=== PATIENT | male | born 1955 | race Caucasian/White ===

== ENCOUNTER 2019-07-16 21:24 | Emergency (ER) | payer OTHER ==
--- NOTE | 2019-07-16 21:45 | ER ---
Nurse's Notes [facility] Name: Nain Addison Age: 63 yrs Sex: Male : 1955 Arrival Date: 07/16/2019 Time: 21:26 Bed 26 Private MD: Diagnosis: Arrested dental caries Presentation: 07/16 21:36 Presenting complaint: Patient states: he lost a crown on Tuesday and now he thinks it bb may be infected and he is concerned the infection may travel to his hip replacement. Transition of care: patient was not received from another setting of care. Onset of symptoms was July 16, 2019. Risk Assessment: Do you want to hurt yourself or someone else? Patient reports no desire to harm self or others. Initial Sepsis Screen: Does the patient meet any 2 criteria? No. Patient's initial sepsis screen is negative. Does the patient have a suspected source of infection? No. Patient's initial sepsis screen is negative. Care prior to arrival: None. 21:36 Method Of Arrival: Ambulatory bb 21:36 Acuity: MARIA A 4 bb Historical: - Allergies: 21:41 No Known Allergies; bb - Home Meds: 21:41 aspirin 81 mg Oral chew 1 tab once daily [Active]; ezetimibe 10 mg Oral 1 tab once bb daily [Active]; metoprolol tartrate 50 mg oral tab 1 tab 2 times per day [Active]; rosuvastatin 20 mg Oral tab 1 tab once daily [Active]; valsartan 160 mg Oral tab 1 tab 2 times per day [Active]; omeprazole 20 mg Oral cpDR 1 cap once daily [Active]; amlodipine 10 mg tab 1 tab once daily [Active]; hydrochlorothiazide 25 mg Oral tab 1 tab once daily [Active]; - PMHx: 21:41 GERD; High Cholesterol; Hypertension; Myocardial infarction; bb - PSHx: 21:41 Tonsillectomy; Knee surgery; hip replacement; ankle surgery; bb - Immunization history:: Adult Immunizations up to date. - Social history:: Smoking status: Patient/guardian denies using tobacco, Patient/guardian denies using alcohol, street drugs, The patient lives with family. - Ebola Screening: : No symptoms or risks identified at this time. - Family history:: not pertinent. Screenin:52 Abuse screen: Denies threats or abuse. Nutritional screening: No deficits noted. fu Tuberculosis screening: No symptoms or risk factors identified. Fall Risk None identified. Assessment: 21:48 General: Appears in no apparent distress. Behavior is calm, cooperative, appropriate fu for age, Denies fever, feeling ill, fatigue, chills. Pain: Complains of pain in right hip Pain does not radiate. Pain currently is 6 out of 10 on a pain scale. Pain began 2-3 days ago. Neuro: Level of Consciousness is awake, alert, obeys commands, Oriented to person, place, time, situation, Litigation Counsel are equal bilaterally Moves all extremities. Cardiovascular: Denies chest pain. Respiratory: Airway is patent. GI: No signs and/or symptoms were reported involving the gastrointestinal system. EENT: Reports. EENT: Reports crown fell off last Tuesday, reports pain noticed pus on left lower side of mouth.. Vital Signs: 21:41 Weight 104.33 kg (R); Height 6 ft. 1 in. (185.42 cm) (R); Pain 6/10; bb 21:41 BP 178 / 78; Pulse 66; Resp 18; Temp 98.1; Pulse Ox 93% ; fu 21:41 Pain 6/10; fu 22:01 BP 146 / 85; fu 21:41 Body Mass Index 30.34 (104.33 kg, 185.42 cm) bb ED Course: 21:26 Patient arrived in ED. cl3 21:32 Darnell Alonzo, WILFRED is Primary Nurse. fu 21:34 Yari Barajas MD is Attending Physician. ma2 21:37 Triage completed. bb 21:41 Arm band placed on Patient placed in an exam room, on a stretcher, on pulse oximetry. bb 21:52 Patient has correct armband on for positive identification. Bed in low position. Call fu light in reach. Pulse ox on. NIBP on. 21:53 No provider procedures requiring assistance completed. fu 22:05 Patient did not have IV access during this emergency room visit. fu Administered Medications: 21:48 Drug: Augmentin 875 mg Route: PO; fu 22:01 Follow up: Response: No adverse reaction fu Outcome: 21:44 Discharge ordered by . ma2 22:05 Discharged to home ambulatory. fu 22:05 Condition: stable 22:05 Discharge instructions given to patient, Instructed on discharge instructions, Demonstrated understanding of instructions, Prescriptions given X 1. 22:08 Patient left the ED. fu Signatures: Lina Howard, RN Darnell Yusuf RN Yari Bowden MD MD ma2 Niurka Suarez cl3
--- NOTE | 2019-07-16 21:45 | EDPHYS ---
Physician Documentation [facility] Name: Nain Addison Age: 63 yrs Sex: Male : 1955 Arrival Date: 07/16/2019 Time: 21:26 Bed 26 Private MD: ED Physician Yari Barajas HPI: 07/16 21:42 This 63 yrs old Male presents to ER via Ambulatory with complaints of ma2 Infected Tooth. 21:42 The patient presents with broken tooth/teeth, redness. Onset: The symptoms/episode ma2 began/occurred gradually, 3 day(s) ago. Associated signs and symptoms: Pertinent negatives: dysphagia, nausea, swelling. Severity of symptoms: At their worst the symptoms were moderate, in the emergency department the symptoms are unchanged. The patient has not experienced similar symptoms in the past. Historical: - Allergies: 21:41 No Known Allergies; bb - Home Meds: 21:41 aspirin 81 mg Oral chew 1 tab once daily [Active]; ezetimibe 10 mg Oral 1 tab once bb daily [Active]; metoprolol tartrate 50 mg oral tab 1 tab 2 times per day [Active]; rosuvastatin 20 mg Oral tab 1 tab once daily [Active]; valsartan 160 mg Oral tab 1 tab 2 times per day [Active]; omeprazole 20 mg Oral cpDR 1 cap once daily [Active]; amlodipine 10 mg tab 1 tab once daily [Active]; hydrochlorothiazide 25 mg Oral tab 1 tab once daily [Active]; - PMHx: 21:41 GERD; High Cholesterol; Hypertension; Myocardial infarction; bb - PSHx: 21:41 Tonsillectomy; Knee surgery; hip replacement; ankle surgery; bb - Immunization history:: Adult Immunizations up to date. - Social history:: Smoking status: Patient/guardian denies using tobacco, Patient/guardian denies using alcohol, street drugs, The patient lives with family. - Ebola Screening: : No symptoms or risks identified at this time. - Family history:: not pertinent. ROS: 21:42 Constitutional: Negative for fever, chills, and weight loss. ma2 21:42 All other systems are negative. Exam: 21:42 Constitutional: This is a well developed, well nourished patient who is awake, alert, ma2 and in no acute distress. Neck: Trachea midline, no thyromegaly or masses palpated, and no cervical lymphadenopathy. Supple, full range of motion without nuchal rigidity, or vertebral point tenderness. No Meningismus. Chest/axilla: Normal chest wall appearance and motion. Nontender with no deformity. No lesions are appreciated. Cardiovascular: Regular rate and rhythm with a normal S1 and S2. No gallops, murmurs, or rubs. Normal PMI, no JVD. No pulse deficits. Respiratory: Lungs have equal breath sounds bilaterally, clear to auscultation and percussion. No rales, rhonchi or wheezes noted. No increased work of breathing, no retractions or nasal flaring. Abdomen/GI: Soft, non-tender, with normal bowel sounds. No distension or tympany. No guarding or rebound. No evidence of tenderness throughout. 21:42 Head/Face: left upper molar teeth infection, gum with no abscessm Normocephalic, atraumatic. Vital Signs: 21:41 Weight 104.33 kg (R); Height 6 ft. 1 in. (185.42 cm) (R); Pain 6/10; bb 21:41 BP 178 / 78; Pulse 66; Resp 18; Temp 98.1; Pulse Ox 93% ; fu 21:41 Pain 6/10; fu 22:01 BP 146 / 85; fu 21:41 Body Mass Index 30.34 (104.33 kg, 185.42 cm) bb MDM: 21:34 Patient medically screened. ma2 21:42 Differential diagnosis: dental caries. Data reviewed: vital signs, nurses notes. ma2 Counseling: I had a detailed discussion with the patient and/or guardian regarding: the historical points, exam findings, and any diagnostic results supporting the discharge/admit diagnosis, the presence of at least one elevated blood pressure reading (>120/80) during this emergency department visit, the need for outpatient follow up. Response to treatment: the patient's symptoms have markedly improved after treatment. Administered Medications: 21:48 Drug: Augmentin 875 mg Route: PO; fu 22:01 Follow up: Response: No adverse reaction fu Disposition: 07/16/19 21:44 Discharged to Home. Impression: Arrested dental caries. - Condition is Stable. - Discharge Instructions: Dental Caries, Adult. - Prescriptions for Augmentin 875- 125 mg Oral Tablet - take 1 tablet by ORAL route every 12 hours for 10 days; 20 tablet. - Medication Reconciliation Form, Thank You Letter, Antibiotic Education, Prescription Opioid Use form. - Follow up: Private Physician; When: Tomorrow; Reason: Continuance of care. Signatures: Lina Howard RN Darnell Yusuf RN RN fu Alzahri, Mohammad, MD MD ma2 Corrections: (The following items were deleted from the chart) 22:08 21:44 07/16/2019 21:44 Discharged to Home. Impression: Arrested dental caries. fu Condition is Stable. Forms are Medication Reconciliation Form, Thank You Letter, Antibiotic Education, Prescription Opioid Use. Follow up: Private Physician; When: Tomorrow; Reason: Continuance of care. ma2
[2019-07-16] MEDS ORDERED: AMOX/K CLAV 875 MG TAB ONE (21:49)
[2019-07-16 23:08] VITALS: TEMP 98.1; O2SAT 93
[2019-07-16 23:18] VITALS: BP 146/85
== END 2019-07-16 22:08 | disposition home or self-care (01) ==
LOC: ER 21:24
DX: K02.3 Arrested dental caries (principal); I10 Essential (primary) hypertension; E78.00 Pure hypercholesterolemia, unspecified; K21.9 Gastro-esophageal reflux disease without esophagitis; I25.2 Old myocardial infarction
CPT/HCPCS: 99283

== ENCOUNTER 2019-08-18 12:47 | Emergency (ER) | payer OTHER ==
[2019-08-18] MEDS ORDERED: MORPHINE 2 MG/ML SYR ONE (13:57)
[2019-08-18] MEDS ORDERED: ONDANSETRON 4 MG/2 ML VIAL ONE (13:57)
[2019-08-18 13:58] LABS: Absolute Lymphocytes (CBC) 2.9 K/uL (0.7-4.9); Basophils % 0.6 % (0-1.3); Hematocrit 46.4 % (39.6-49.0); Lymphocytes % 30.7 % (15.3-44.8); MPV 7.9 fL (7.6-11.3); RBC Red Blood Cell Count 5.05 M/uL (4.33-5.43)
[2019-08-18 14:14] LABS: ALT/SGPT 53 U/L (12-78); AST/SGOT 17 U/L (15-37); Albumin 3.9 g/dL (3.4-5.0); Alkaline Phosphatase 77 U/L (45-117); BUN Blood Urea Nitrogen 15 mg/dL (7-18); Bicarbonate 26 mmol/L (21-32); Bilirubin Total 0.5 mg/dL (0.2-1.0); Glucose Level 126 mg/dL (74-106); Potassium 4.3 mmol/L (3.5-5.1); Sodium Level 147 mmol/L (136-145)
--- NOTE | 2019-08-18 14:41 | ER ---
Nurse's Notes [facility] Name: Nain Addison Age: 64 yrs Sex: Male : 1955 Arrival Date: 08/18/2019 Time: 12:49 Bed 8 Private MD: Skyler Tsai Diagnosis: Pain in right hip Presentation: 08/18 12:58 Presenting complaint: Patient states: Had wisdom teeth removed, was seen for dry socket ss and was given Clindamycin yesterday just in case it may be infected. Pt is concerned because for the past 3-4 days he has been having R hip (hx of total hip replacement) and low back pain and wants to make sure the infection has not made it to his blood stream. Denies fever. Transition of care: patient was not received from another setting of care. Onset of symptoms was August 14, 2019. Risk Assessment: Do you want to hurt yourself or someone else? Patient reports no desire to harm self or others. Initial Sepsis Screen: Does the patient have a suspected source of infection? No. Patient's initial sepsis screen is negative. Initial Sepsis Screen: Does the patient meet any 2 criteria? No. Patient's initial sepsis screen is negative. Care prior to arrival: None. 12:58 Method Of Arrival: Ambulatory ss 12:58 Acuity: MARIA A 4 ss Historical: - Allergies: 13:02 No Known Allergies; ss - Home Meds: 14:06 amlodipine 10 mg tab 1 tab once daily [Active]; aspirin 81 mg Oral chew 1 tab once jl7 daily [Active]; ezetimibe 10 mg Oral 1 tab once daily [Active]; hydrochlorothiazide 25 mg Oral tab 1 tab once daily [Active]; metoprolol tartrate 50 mg Oral tab 1 tab 2 times per day [Active]; omeprazole 20 mg Oral cpDR 1 cap once daily [Active]; rosuvastatin 20 mg Oral tab 1 tab once daily [Active]; valsartan 160 mg Oral tab 1 tab 2 times per day [Active]; - PMHx: 13:02 GERD; Myocardial infarction; Hypertension; High Cholesterol; ss - PSHx: 13:02 Tonsillectomy; ankle surgery; hip replacement; Knee surgery; CABG; ss - Immunization history:: Adult Immunizations up to date. - Coronavirus screen:: The patient has NOT traveled to [place] in the past 14 days. Proceed with normal triage process as indicated. - Social history:: Smoking status: Patient denies any tobacco usage or history of. - Family history:: not pertinent. - Ebola Screening: : Patient denies exposure to infectious person Patient denies travel to an Ebola-affected area in the 21 days before illness onset. Screenin:04 Abuse screen: Denies threats or abuse. Denies injuries from another. Nutritional jl7 screening: No deficits noted. Tuberculosis screening: No symptoms or risk factors identified. Fall Risk IV access (20 points). Total Huffman Fall Scale indicates No Risk (0-24 pts). Assessment: 13:30 General: Appears in no apparent distress. uncomfortable, Behavior is calm, cooperative, jl7 appropriate for age. Pain: Complains of pain in right jaw and right hip Pain currently is 5 out of 10 on a pain scale. Neuro: Level of Consciousness is awake, alert, obeys commands, Oriented to person, place, time, situation. Cardiovascular: Patient's skin is warm and dry. Respiratory: Airway is patent Respiratory effort is even, unlabored, Respiratory pattern is regular, symmetrical. Derm: Skin is pink, warm \T\ dry. 14:45 Reassessment: Patient appears in no apparent distress at this time. Patient and/or em family updated on plan of care and expected duration. Pain level reassessed. Patient is alert, oriented x 3, equal unlabored respirations, skin warm/dry/pink. Vital Signs: 13:02 BP 132 / 73; Pulse 67; Resp 16; Temp 98.0; Pulse Ox 97% on R/A; Weight 104.33 kg; ss Height 6 ft. 1 in. (185.42 cm); Pain 4/10; 13:02 Body Mass Index 30.34 (104.33 kg, 185.42 cm) ED Course: 12:49 Patient arrived in ED. mr 12:49 Skyler Tsai MD is Private Physician. mr 13:01 Triage completed. 13:02 Arm band placed on right wrist. 13:29 Erick Blackman MD is Attending Physician. [facility] 13:30 Initial lab(s) drawn, by mo, sent to lab. Inserted saline lock: 20 gauge in right hand, jl7 using aseptic technique. Blood collected. 13:31 Lucio, Jahala, RN is Primary Nurse. jl7 14:04 Patient has correct armband on for positive identification. Placed in gown. Bed in low jl7 position. Call light in reach. Side rails up X 1. 14:39 Skyler Tsai MD is Referral Physician. [facility] 14:54 No provider procedures requiring assistance completed. IV discontinued, intact, em bleeding controlled, No redness/swelling at site. Pressure dressing applied. Administered Medications: 13:56 Drug: Zofran 4 mg Route: IVP; Site: right hand; jl7 14:55 Follow up: Response: No adverse reaction em 13:58 Drug: morphine 2 mg Route: IVP; Site: right hand; jl7 14:55 Follow up: Response: No adverse reaction; Marked relief of symptoms; Pain is decreased em Outcome: 14:39 Discharge ordered by . [facility] 14:54 Discharged to home ambulatory, with family. em 14:54 Condition: good 14:54 Discharge instructions given to patient, family, Instructed on discharge instructions, follow up and referral plans. medication usage, Demonstrated understanding of instructions, follow-up care, medications, Prescriptions given X 1. 14:55 Patient left the ED. em Signatures: Erick Blackman MD MD cha Rivera, Mary Kota Wesley, RN RN Corrie Topete RN RN ss Leal, Jahala, WILFRED RN 7
--- NOTE | 2019-08-18 14:41 | EDPHYS ---
Physician Documentation [facility] Name: Nain Addison Age: 64 yrs Sex: Male : 1955 Arrival Date: 08/18/2019 Time: 12:49 Bed 8 Private MD: Skyler Tsai ED Physician Erick Blackman HPI: 08/18 13:36 This 64 yrs old Male presents to ER via Ambulatory with complaints of Hip sarah Pain, Mouth Swelling. 13:36 The patient or guardian reports decreased range of motion. that occurred. The sarah complaints affect the right hip. Onset: The symptoms/episode began/occurred 2 day(s) ago. Modifying factors: The symptoms are alleviated by nothing. Associated signs and symptoms:. Severity of symptoms: At their worst the symptoms were mild, in the emergency department the symptoms are unchanged. The patient has not experienced similar symptoms in the past. Historical: - Allergies: 13:02 No Known Allergies; ss - Home Meds: 14:06 amlodipine 10 mg tab 1 tab once daily [Active]; aspirin 81 mg Oral chew 1 tab once jl7 daily [Active]; ezetimibe 10 mg Oral 1 tab once daily [Active]; hydrochlorothiazide 25 mg Oral tab 1 tab once daily [Active]; metoprolol tartrate 50 mg Oral tab 1 tab 2 times per day [Active]; omeprazole 20 mg Oral cpDR 1 cap once daily [Active]; rosuvastatin 20 mg Oral tab 1 tab once daily [Active]; valsartan 160 mg Oral tab 1 tab 2 times per day [Active]; - PMHx: 13:02 GERD; Myocardial infarction; Hypertension; High Cholesterol; ss - PSHx: 13:02 Tonsillectomy; ankle surgery; hip replacement; Knee surgery; CABG; ss - Immunization history:: Adult Immunizations up to date. - Coronavirus screen:: The patient has NOT traveled to [place] in the past 14 days. Proceed with normal triage process as indicated. - Social history:: Smoking status: Patient denies any tobacco usage or history of. - Family history:: not pertinent. - Ebola Screening: : Patient denies exposure to infectious person Patient denies travel to an Ebola-affected area in the 21 days before illness onset. ROS: 13:36 Constitutional: Negative for fever, chills, and weight loss, Eyes: Negative for injury, sarah pain, redness, and discharge, ENT: Negative for injury, pain, and discharge, Neck: Negative for injury, pain, and swelling, Cardiovascular: Negative for chest pain, palpitations, and edema, Respiratory: Negative for shortness of breath, cough, wheezing, and pleuritic chest pain, Abdomen/GI: Negative for abdominal pain, nausea, vomiting, diarrhea, and constipation, Back: Negative for injury and pain, : Negative for injury, bleeding, discharge, and swelling, Skin: Negative for injury, rash, and discoloration, Neuro: Negative for headache, weakness, numbness, tingling, and seizure, Psych: Negative for depression, anxiety, suicide ideation, homicidal ideation, and hallucinations, Allergy/Immunology: Negative for hives, rash, and allergies, Endocrine: Negative for neck swelling, polydipsia, polyuria, polyphagia, and marked weight changes, Hematologic/Lymphatic: Negative for swollen nodes, abnormal bleeding, and unusual bruising. 13:36 MS/extremity: Positive for pain, of the right hip. Exam: 13:36 Constitutional: This is a well developed, well nourished patient who is awake, alert, sarah and in no acute distress. Eyes: Pupils equal round and reactive to light, extra-ocular motions intact. Lids and lashes normal. Conjunctiva and sclera are non-icteric and not injected. Cornea within normal limits. Periorbital areas with no swelling, redness, or edema. ENT: Nares patent. No nasal discharge, no septal abnormalities noted. Tympanic membranes are normal and external auditory canals are clear. Oropharynx with no redness, swelling, or masses, exudates, or evidence of obstruction, uvula midline. Mucous membranes moist. Neck: Trachea midline, no thyromegaly or masses palpated, and no cervical lymphadenopathy. Supple, full range of motion without nuchal rigidity, or vertebral point tenderness. No Meningismus. Chest/axilla: Normal chest wall appearance and motion. Nontender with no deformity. No lesions are appreciated. Cardiovascular: Regular rate and rhythm with a normal S1 and S2. No gallops, murmurs, or rubs. Normal PMI, no JVD. No pulse deficits. Respiratory: Lungs have equal breath sounds bilaterally, clear to auscultation and percussion. No rales, rhonchi or wheezes noted. No increased work of breathing, no retractions or nasal flaring. Abdomen/GI: Soft, non-tender, with normal bowel sounds. No distension or tympany. No guarding or rebound. No evidence of tenderness throughout. Back: No spinal tenderness. No costovertebral tenderness. Full range of motion. Male : Normal genitalia with no discharge or lesions. Skin: Warm, dry with normal turgor. Normal color with no rashes, no lesions, and no evidence of cellulitis. Neuro: Awake and alert, GCS 15, oriented to person, place, time, and situation. Cranial nerves II-XII grossly intact. Motor strength 5/5 in all extremities. Sensory grossly intact. Cerebellar exam normal. Normal gait. Psych: Awake, alert, with orientation to person, place and time. Behavior, mood, and affect are within normal limits. 13:36 Head/face: Noted is tenderness, that is mild, of the right cheek and right jaw. 13:36 Musculoskeletal/extremity: Extremities: pain, ROM: intact in all extremities, full active range of motion, full passive range of motion, Circulation is intact in all extremities. Compartment Syndrome exam of affected extremity: is normal. Joints: pain at rest, painful range of motion, Weight bearing: able to fully bear weight, DVT Exam: No signs of deep vein thrombosis. no pain, no swelling, no tenderness, negative Homans' sign noted on exam, no appreciated bluish discoloration, no erythema, no increased warmth. Vital Signs: 13:02 BP 132 / 73; Pulse 67; Resp 16; Temp 98.0; Pulse Ox 97% on R/A; Weight 104.33 kg; ss Height 6 ft. 1 in. (185.42 cm); Pain 4/10; 13:02 Body Mass Index 30.34 (104.33 kg, 185.42 cm) ss MDM: 13:29 Patient medically screened. [facility] 13:43 Data reviewed: vital signs, nurses notes, lab test result(s). [facility] 08/18 13:36 Order name: CBC with Diff [facility] 08/18 13:36 Order name: Comprehensive Metabolic Panel [facility] 08/18 13:36 Order name: Sed Rate [facility] 08/18 14:13 Order name: CBC with Automated Diff; Complete Time: 14:39 EDVT 08/18 14:15 Order name: Comprehensive Metabolic Panel; Complete Time: 14:39 EDMS 08/18 14:22 Order name: Sedimentation Rate, Briannaren; Complete Time: 14:39 [facility] 08/18 13:44 Order name: Hip Right 2 View XRAY [facility] 08/18 13:53 Order name: IV Saline Lock - Large Bore; Complete Time: 14:03 [facility] Administered Medications: 13:56 Drug: Zofran 4 mg Route: IVP; Site: right hand; jl7 14:55 Follow up: Response: No adverse reaction em 13:58 Drug: morphine 2 mg Route: IVP; Site: right hand; jl7 14:55 Follow up: Response: No adverse reaction; Marked relief of symptoms; Pain is decreased em Disposition: 08/18/19 14:39 Discharged to Home. Impression: Pain in right hip. - Condition is Stable. - Discharge Instructions: Joint Pain, Musculoskeletal Pain, Hip Pain, Joint Pain, [id number]. - Prescriptions for Tylenol- Codeine #3 300-30 mg Oral Tablet - take 2 tablets by ORAL route every 6 hours As needed; 20 tablet. - Medication Reconciliation Form, Thank You Letter, Antibiotic Education, Prescription Opioid Use form. - Follow up: Skyler Tsai; When: 2 - 3 days; Reason: Recheck today's complaints, Continuance of care, Re-evaluation by your physician. - Problem is new. - Symptoms have improved. Signatures: Dispatcher [employer] Erick De Santiago MD MD cha Munoz, Edgar RN Corrie Rondey RN RN ss Leal, Jahala, RN RN jl7 Corrections: (The following items were deleted from the chart) 14:55 14:39 08/18/2019 14:39 Discharged to Home. Impression: Pain in right hip. Condition is em Stable. Discharge Instructions: Joint Pain, Musculoskeletal Pain, Hip Pain, Joint Pain, [id number]. Forms are Medication Reconciliation Form, Thank You Letter, Antibiotic Education, Prescription Opioid Use. Follow up: Skyler Tsai; When: 2 - 3 days; Reason: Recheck today's complaints, Continuance of care, Re-evaluation by your physician. Problem is new. Symptoms have improved. sarah
[2019-08-18 15:22] VITALS: BP 132/73; TEMP 98; O2SAT 97
--- NOTE | 2019-08-18 15:32 | RAD REPORT ---
EXAM DESCRIPTION: RAD - Hip Right 2 View - 08/18/2019 2:35 pm CLINICAL HISTORY: PAIN COMPARISON: No comparisons FINDINGS: AP and frog-leg views of the right hip were obtained. Right total hip prosthesis in place. No fracture or acute bone process seen. There is no evidence for loosening of the right femoral component. No loosening changes of the acetabular cup seen. No focal or destructive process seen that would suspect bone infection. No periarticular mass or hematoma iden tified. No abnormal air densities in the soft tissues. IMPRESSION: Right total hip prosthesis in place with no radiographic evidence for loosening or infec tion of the bone.
== END 2019-08-18 14:55 | disposition home or self-care (01) ==
LOC: ER 12:47
DX: M25.551 Pain in right hip (principal); K21.9 Gastro-esophageal reflux disease without esophagitis; I10 Essential (primary) hypertension; E78.00 Pure hypercholesterolemia, unspecified; I25.2 Old myocardial infarction; Z95.1 Presence of aortocoronary bypass graft
CPT/HCPCS: 85025; 36415; 85652; 80053; 73502; 96375; 96374; 99284; J2270; J2405

== ENCOUNTER 2023-02-17 14:30 | Emergency (ER) | payer OTHER ==
--- OUTSIDE RECORDS SUMMARY | 2023-02-17 14:34 | XMS REPORT | Clinical Summary ---
:1955 Author Organization [facility] MD [facility] Center Address [address] [place] [address] Care Team Providers Name Role Phone Skyler Tsai MD Unavailable Jocelin Cook MD Primary Care Provider Allergies No known active allergies Medications Medication Sig Dispensed Refills Start End Date Status Date valsartan (DIOVAN) 160 BID 3 Active mg tablet 7 rosuvastatin (CRESTOR) TAKE 1 12 Active 20 mg tablet TABLET BY 7 MOUTH EVERY DAY ezetimibe (ZETIA) 10 mg TAKE 1 12 Active tablet TABLET BY 7 MOUTH EVERY DAY cyclobenzaprine TAKE 1 12 Acti ve (FLEXERIL) 10 mg tablet TABLET BY 7 ORAL ROUTE EVERY BEDTIME metoprolol tartrate Take 50 mg 0 Active (LOPRESSOR) 50 mg by mouth tablet twice daily. aspirin 81 mg EC tablet Take 81 mg 0 Active by mouth. hydroCHLOROthiazide Take 25 mg 0 Active (HYDRODIURIL) 25 mg by mouth. tablet coenzyme Q10 200 mg Take 1 0 Active capsule tablet by mouth. cholecalciferol, Take 1,000 0 Ac tive vitamin D3, 1,000 units Units by tablet mouth daily. amLODIPine (NORVASC) 10 TAKE 1 3 Active mg tablet TABLET BY 8 ORAL ROUTE EVERY DAY fluticasone propionate SPRAY 1 0 Active (FLONASE) 50 mcg/spray SPRAY INTO 9 nasal spray EACH NOSTRIL TWICE A DAY pantoprazole (PROTONIX) Take 40 mg 0 Active 40 mg EC tablet by mouth. 9 famotidine (PEPCID) 40 Take 40 mg 0 Active mg tablet by mouth 0 daily. At bed time. diazePAM (Valium) 5 mg Take Two 2 tablet 0 Active tabletIndications: Tablets (10 1 Claustrophobia mg total) 30 Minutes Before MRI. melatonin 3 mg tablet Take 3 mg 0 03/04/20 Discontinued by mouth 22 (Not Appli cable) nightly as needed. 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 Thyroid nodule Follicular neoplasm of thyroid Pituitary microadenoma Hyperprolactinemia Encounters Date Type Specialty Care Team Description 03/05/2022 Orders Only Radiology Sherin Myers MD 03/04/2022 Office Visit Endocrinology Jocelin Cook MD Pituitary m icroadenoma (Primary Dx); Hyperprolactine alfredo; Thyroid nodule; Encounter for s creening for other suspected endocrine disorder 03/04/2022 Ancillary Procedure Radiology Gisele Velasquez, Pitu itary microadenoma CLOCK ASSEMBLER 03/04/2022 Ancillary Procedure Radiology Gisele Velasquez, Thyr oid nodule CLOCK ASSEMBLER 03/04/2022 Hospital Encounter Lab Gisele Velasquez, Encou nter for screening for other suspected endocrine disorder; CLOCK ASSEMBLER Hyperprolactine alfredo; Thyroid nodule 03/04/2022 Travel after 02/17/2022 Surgical History Surgery Date Site/Laterality Comments COLONOSCOPY TOTAL HIP ARTHROPLASTY Right CORONARY ARTERY BYPASS 07/04/2006 - GRAFT 07/03/2007 CARPAL TUNNEL RELEASE TONSILLECTOMY NECK SURGERY for torticollis OTHER SURGICAL HISTORY botox for torticollis OTHER SURGICAL HISTORY facial re pair after industrial accid ent which makes face seem asymmetrical Medical History Medical History Date Comments Coronary arteriosclerosis Hypertension Hyperlipidemia Impaired fasting glucose Osteoarthritis Allergic rhinitis not current though Torticollis Myocardial infarction 01/26/2007 Quadruple bypass Hepatitis 1976 Gastric reflux resolved Presence of other specified device Hip r eplacement, pins - ankles Herpes zoster Thyroid nodule Follicular neoplasm of thyroid Personal history of colon polyp Nephrolithiasis on CT 02/17/2017 Diverticulosis of colon (without mention of on CT 02/17/2017 hemorrhage) Pituitary microadenoma Family History Medical History Relation Name Comments Leukemia Brother Isaías Addison hairy cell leuk emia Bone cancer Father Dilshad Addison, Sr. Colon cancer Father Dilshad Addison, Sr. Diabetes Father Dilshad Addison, Sr. Lung cancer Father Dilshad Addison, Sr. Hypertension Mother Mee Addison Thyroid cancer Neg Hx Thyroid disease Neg Hx Relation Name Status Comments Brother Isaías Addison Father Dilshad Addison, Sr. Mother Mee Addison Social History Tobacco Use Types Packs/Day Years Used Date Smoking Tobacco: Former Cigarettes 08/04 - 2005 Smokeless Tobacco: Never Alcohol Use Standard Drinks/Week Comments Yes 0 (1 standard drink = 0.6 oz pure alcoho l) Occasional Sex Assigned at Date Recorded Male 12/24/2020 12:30 PM CDT Job Start Date Occupation Industry Not on file Not on file Not on file Obstetrics History Last Filed Vital Signs Vital Sign Reading Time Taken Comments Blood Pressure 156/79 03/04/2022 1:53 PM CDT Pulse 74 03/04/2022 1:53 PM CDT Temperature 36.7 C (98.1 F) 03/04/2022 1:53 PM CDT Respiratory Rate 20 03/04/2022 1:53 PM CDT Oxygen Saturation 96% 03/04/2022 1:53 PM CDT Inhaled Oxygen Concentration - - Weight 106.8 kg (235 lb 7.2 oz) 03/04/2022 1:53 PM CDT Height - - Body Mass Index 31.04 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 Plan of Treatment Date Type Specialty Care Team Description 04/21/2023 Appointment Lab Christy Zhu PA [address] [place], [place] [address] (Wo rk) 04/21/2023 Ancillary Procedure Radiology Paul Zhu PA [address] [place], [place] [address] (Wo rk) 04/21/2023 Ancillary Procedure Radiology Paul Zhu PA [address] [place], [place] [address] (Wo rk) 04/21/2023 Follow-Up Endocrinology Jocelin Cook MD [address] [place], [place] [address] (Wo rk) Health Maintenance Due Date Last Done Comments COVID-19 Vaccination (#1) 02/11/1956 Medical Devices Implanted Type Area Wooden Tank Erector Device Identifier Shelf Exp iration Model / Date Serial / L ot Pins In Ankle Procedures Procedure Name Priority Date/Time Associated Comments Diagnosis MRI PITUITARY W WO Routine 03/04/2022 1:35 Pituitary Result s for CONTRAST PM CDT microadenoma this procedure are in the results section. US HEAD NECK SOFT TISSUE Routine 03/04/2022 11:15 Thyroid nodu le Results for AM CDT this procedure are in the results section. CORTISOL Routine 03/04/2022 10:15 Encounter for Results fo r AM CDT screening for other this pro cedure suspected endocrine are in t he disorder results section. ADRENOCORTICOTROPIC Routine 03/04/2022 10:15 Encounter for Res ults for HORMONE AM CDT screening for other this pro cedure suspected endocrine are in t he disorder results section. THYROID STIMULATING Routine 03/04/2022 10:15 Thyroid nod ule Results for HORMONE AM CDT Encounter for this procedure screening for other are in t he suspected endocrine results disorder section. FREE THYROXINE Routine 03/04/2022 10:15 Thyroid nodule Results for AM CDT Encounter for this procedure screening for other are in t he suspected endocrine results disorder section. PROLACTIN Routine 03/04/2022 10:15 Hyperprolactine alfredo Results for AM CDT Encounter for this procedure screening for other are in t he suspected endocrine results disorder section. INSULIN LIKE GROWTH FACTOR Routine 03/04/2022 10:15 Encounter for Results for 1 AM CDT screening for other this pro cedure suspected endocrine are in t he disorder results section. TESTOSTERONE LEVEL Routine 03/04/2022 10:15 Encounter for Resu lts for AM CDT screening for other this pro cedure suspected endocrine are in t he disorder results section. LUTEINIZING HORMONE Routine 03/04/2022 10:15 Encounter for Res ults for AM CDT screening for other this pro cedure suspected endocrine are in t he disorder results section. FOLLICLE STIMULATING Routine 03/04/2022 10:15 Encounter for Re sults for HORMONE LEVEL AM CDT screening for other this pr ocedure suspected endocrine are in t he disorder results section. ELECTROLYTE PANEL Routine 03/04/2022 10:15 Encounter for Resul ts for AM CDT screening for other this pro cedure suspected endocrine are in t he disorder results section. after 02/17/2022 Results MRI Pituitary with and without Contrast (03/04/2022 1:35 PM CDT) Anatomical Region Laterality Modality Head Magnetic Resonance Specimen (Source) Anatomical Collection Method Collection Time Re ceived Time Location / / Volume Laterality 03/05/2022 8:08 AM CDT Impressions 03/05/2022 12:00 PM CDT Stable 8 x 6 mm nonenhancing cystic lesi on of the right sella. I personally reviewed these image(s) an buchanan with the resident's/fellow's interpretations, certify that if a procedure was performed I was physically present, and agree with the final report. Narrative 03/05/2022 12:00 PM CDT FULL RESULT: EXAMINATION: MRI brain pituitary with an d without contrast, on 03/05/2022 CLINICAL HISTORY: 66-year-old male with pituitary microadenoma with hyperprolactinemia. INDICATION: Pituitary microadenoma COMPARISON: MRI brain pituitary 1.. TECHNIQUE: Multiplanar and multisequence MRI of the brain was performed before and after administration of IV contrast. FINDINGS: Sella: There is a stable cystic lesion w ithin the right side of the sella, which is T1 hypointense, T2 hyperintense, and nonenhancing on postcontrast images. The lesion measures 8 x 6 mm, not significantly changed since prior measurement of 8 x 7 mm. The pituitary stalk is minimally displac ed to the left. No compression of the optic chiasm. Parasellar structures: Normal cavernous sinuses and carotid artery flow voids. Parenchyma: No acute hemorrhage, infarct ion, mass, or abnormal enhancement. Ventricles and extra-axial spaces: Appro priate for age. Orbits: Normal. Visualized paranasal sinuses: Clear. Mastoid air cells: Clear. Bones: Normal. Procedure Note Hue Prieto MD - 03/05/2022Forma tting of this note might be different from the original. FULL RESULT: EXAMINATION: MRI brain pituitary with an d without contrast, on 03/05/2022 CLINICAL HISTORY: 66-year-old male with pituitary microadenoma with hyperprolactinemia. INDICATION: Pituitary microadenoma COMPARISON: MRI brain pituitary 1.. TECHNIQUE: Multiplanar and multisequence MRI of the brain was performed before and after administration of IV contrast. FINDINGS: Sella: There is a stable cystic lesion w ithin the right side of the sella, which is T1 hypointense, T2 hyperintense, and nonenhancing on postcontrast images. The lesion measures 8 x 6 mm, not significantly changed since prior measurement of 8 x 7 mm. The pituitary stalk is minimally displac ed to the left. No compression of the optic chiasm. Parasellar structures: Normal cavernous sinuses and carotid artery flow voids. Parenchyma: No acute hemorrhage, infarct ion, mass, or abnormal enhancement. Ventricles and extra-axial spaces: Appro priate for age. Orbits: Normal. Visualized paranasal sinuses: Clear. Mastoid air cells: Clear. Bones: Normal. IMPRESSION: Stable 8 x 6 mm nonenhancing cystic lesi on of the right sella. I personally reviewed these image(s) an buchanan with the resident's/fellow's interpretations, certify that if a procedure was performed I was physically present, and agree with the final report. Gisele Velasquez APRN G MRI ORDERABLES US Head Neck Soft Tissue (03/04/2022 11:15 AM CDT) Anatomical Region Laterality Modality Head, Neck Ultrasound Specimen (Source) Anatomical Collection Method Collection Time Re ceived Time Location / / Volume Laterality 03/04/2022 11:16 AM CDT Impressions 03/04/2022 12:27 PM CDT Stable examination without suspicious fi nding. 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 Indication: Reassessment. Comparison: Ultrasound of the thyroid Ju nd 2020. Technique: Grayscale and Doppler ultraso und imaging of the neck were performed. Findings: Within the RIGHT inferior thyroid is a p redominantly hypoechoic nodule measuring 6 x 6 x 5 mm and previously measuring 5 x 5 x 6 mm. The isthmus and RIGHT thyroid otherwise unremarkable. The nodule in t he LEFT superior thyroid previously biop sied as benign currently measures 10 x 15 x 11 mm and previously measured 9 x 13 x 9 mm. The LEFT thyroid is otherwise unremarkable. There is no cervical lymphadenopathy. Procedure Note Jagjit Smith MD - 03/04/2022Formattin g of this note might be different from the original. 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 Indication: Reassessment. Comparison: Ultrasound of the thyroid Ju nd 2020. Technique: Grayscale and Doppler ultraso und imaging of the neck were performed. Findings: Within the RIGHT inferior thyroid is a p redominantly hypoechoic nodule measuring 6 x 6 x 5 mm and previously measuring 5 x 5 x 6 mm. The isthmus and RIGHT thyroid otherwise unremarkable. The nodule in the LEFT superior thyroid previously biopsied as benign cu rrently measures 10 x 15 x 11 mm and previously measured 9 x 13 x 9 mm. The LEFT thyroid is otherwise unremarkable. There is no cervical lymphadenopathy. IMPRESSION: Stable examination without suspicious fi nding. Gisele Velasquez APRN IMG US ORDERABLES Insulin-Like Growth Factor I (03/04/2022 10:15 AM CDT) athologist Signature Insulin-Like 160 32 - 209 [facility] Growth Factor ng/mL [facility] 1-[employer] IGF Z-score 1.28 -2.0 - 2.0 [facility] Comment: ADDITIONAL INFORMATIO N This test was developed and its performa nce characteristics determined by [facility] in a manner co nsistent with CLIA requirements. This test has not been pritesh ared or approved by the U.S. Food and Drug Administration. Test Performed by: [facility] [address] [place] [address] [phone] Electronics Manufacturer: Uri Bautista M.D. Ph. D.; [facility]# [id number] Specimen Anatomical Collection Method Collection Time Receive d Time (Source) Location / / Volume Laterality Blood 03/04/2022 10:15 03/04/2022 AM CDT 11:28 AM CDT Narrative [facility] - 2 12:30 PM CDT Labs 8:00 AM. Gisele Cecily Velasquez APRN LAB BLOOD ORDERABLES Performing Organization Address City/[facility] Phon e Number [facility] CANCER Unless otherwise noted, [address] all lab tests performed by: Division of Pathology and Laboratory Medicine [address] [place] [address] ACTH (03/04/2022 10:15 AM CDT) athologist Signature ACTH 16 7 - 63 [facility] pg/mL [facility] Comment: Results greater than 1826 pg/mL may not be reliable due to matrix effect with extended dilution as it exceeds the labview programmer's recommended limit. ACTH reference intervals are established for the morni ng hours from 7-10 am. Due to the circad madhav rhythm of ACTH levels in plasma, the sample col lection time must be noted. Caution should be exercised when interpreting such values and done in conjunction with clinical context. Specimen Anatomical Collection Method Collection Time Receive d Time (Source) Location / / Volume Laterality Blood 03/04/2022 10:15 03/04/2022 2:10 AM CDT PM CDT Narrative [facility] - 2 2:32 PM CDT Labs 8:00 AM. This lab cannot be scheduled at the [facility] locations due to collection/proccessing restrictions: [place] - REGLC DIAG LAB CTR [place] - REGSL DIAG LAB CTR [place] - REGWL DIAG LAB CTR [facility] - REGWR DAIG LAB CTR DI [facility] DIWH DIAG LAB CTR [place] - CABI DIAG LAB CTR Gisele Velasquez CLOCK ASSEMBLER LAB BLOOD ORDERABLES Performing Organization Address City/[facility]/ZIP [facility] Phon e Number [facility] Unless otherwise noted, [address] all lab tests performed by: Division of Pathology and Laboratory Medicine [address] [place] [address] Prolactin (03/04/2022 10:15 AM CDT) athologist [facility] Prolactin 13.9 4.0 - 15.2 [facility] ng/mL [facility] Comment: Results greater than 4700.0 ng/ mL may not be reliable due to matrix effect with extended dilution as it exceeds the labview programmer s recommended limit. Caution should be e xercised when interpreting such values and done in conjunction with clinical contex t. Specimen Anatomical Collection Method Collection Time Receive d Time (Source) Location / / Volume Laterality Blood 03/04/2022 10:15 03/04/2022 AM CDT 11:08 AM CDT Narrative [facility] - 11:59 AM CDT Labs 8:00 AM. Gisele Velasquez APRN LAB BLOOD ORDERABLES Performing Organization Address City/[facility] Phon e Number [facility] CANCER Unless otherwise noted, [place] [address] CENTER all lab tests performed by: Division of Pathology and Laboratory Medicine [address] [place] [address] [place] TSH (03/04/2022 10:15 AM CDT) [facility] TSH 2.94 0.27 - 4.20 [facility] mcunit/mL Comment: Note: New Methodology and Reference Ra nge change effective 10/20/2017 at 1400 Testing Performed at [facility], [address] [place] [address], [address], [place] [address] Specimen Anatomical Collection Method Collection Time Receive d Time (Source) Location / / Volume Laterality Blood 03/04/2022 10:15 03/04/2022 AM CDT 10:23 AM CDT Narrative [facility] - 03/04/2022 11:07 AM CDT Labs 8:00 AM. Gisele Velasquez APRN LAB BLOOD ORDERABLES Performing Organization Address City/[facility]/ZIP [facility] Phon e Number [address] [place] [address] [address] T4 Free (03/04/2022 10:15 AM CDT) athologist [facility] T4 Free 1.22 0.93 - 1.70 [facility] ng/dL Comment: Testing Performed at [facility], [address] [facility], [address], [place] [address] Specimen Anatomical Collection Method Collection Time Receive d Time (Source) Location / / Volume Laterality Blood 03/04/2022 10:15 03/04/2022 AM CDT 10:23 AM CDT Narrative [facility] - 03/04/2022 11:07 AM CDT Labs 8:00 AM. Gisele Velasquez APRN LAB BLOOD ORDERABLES Performing Organization Address City/[facility]/ZIP Code Phon e Number [facility] [address] [facility] [place] [address] [address] Testosterone Level (03/04/2022 10:15 AM CDT) athologist Signature Testoster Tot 356 193 - 740 [facility] ng/dL [facility] Comment: Reference Ranges: Male: Age 20 - 49 249 - 836 Age >=50 1 93 - 740 Female: Age 20 - 49 8 - 48 Age >=50 3 - 41 Specimen Anatomical Collection Method Collection Time Receive d Time (Source) Location / / Volume Laterality Blood 03/04/2022 10:15 03/04/2022 AM CDT 11:08 AM CDT Narrative [facility] - 2 11:59 AM CDT Labs 8:00 AM. Gisele Velasquez APRN LAB BLOOD ORDERABLES Performing Organization Address City/State/ZIP Code Phon e Number [facility] CANCER Unless otherwise noted, [place] [address] CENTER all lab tests performed by: Division of Pathology and Laboratory Medicine [address] [place] (ABNORMAL) LH (03/04/2022 10:15 AM CDT) athologist Signature LH 13.4 (H) 1.7 - 8.6 [facility] mIU/mL [facility] Comment: Female Luteinizing Hormone Reference Ran ges: LOW HIGH Follicular 2.4 12.6 Ovulation 14.0 95.6 Luteal 1.0 11.4 Postmenopause 7.7 58.5 Specimen Anatomical Collection Method Collection Time Receive d Time (Source) Location / / Volume Laterality Blood 03/04/2022 10:15 03/04/2022 AM CDT 11:08 AM CDT Narrative [facility] - 2 11:59 AM CDT Labs 8:00 AM. Gisele Velasquez APRN LAB BLOOD ORDERABLES Performing Organization Address City/[facility]/ZIP Code Phon e Number [facility] Unless otherwise noted, [address] all lab tests performed by: Division of Pathology and Laboratory Medicine [facility]5 [facility] (ABNORMAL) FSH Level (03/04/2022 10:15 AM CDT) athologist Signature FSH 17.5 (H) 1.5 - 12.4 [facility] mIU/mL [facility] Comment: Female Follicle Stimulating Hormone Refe rence Ranges: L OW HIGH Follicular 3.5 12.5 Ovulation 4.7 21.5 Luteal 1.7 7.7 Postmenopause 25.8 134.8 Specimen Anatomical Collection Method Collection Time Receive d Time (Source) Location / / Volume Laterality Blood 03/04/2022 10:15 03/04/2022 AM CDT 11:08 AM CDT Narrative [facility] - 2 11:59 AM CDT Labs 8:00 AM. Giseletera Taamyoel CLOCK ASSEMBLER LAB BLOOD ORDERABLES Performing Organization Address City/[facility]/ZIP Code Phon e Number [facility] Unless otherwise noted, [address] all lab tests performed by: Division of Pathology and Laboratory Medicine [address] [place] [address] Cortisol, Total (03/04/2022 10:15 AM CDT) athologist [facility] Cortisol, Total 12.26 4.80 - [facility] 19.50 mcg/dL Comment: Cortisol reference intervals are establi shed for the morning hours from 6-10 am and afternoon hours 4-8 pm. Due to circadian rhythm of cortisol levels in serum and plasma, the sample collection time must be noted. Caution should be exercised when interpreting such values and done in con junction with clinical context. Serum Cortisol Reference Ranges: Morning (6-10am) (4.8 - 19.5) Afternoon (4-8pm) (2.5 - 11.9) Testing Performed at [facility] Blower Installer [facility], [address], [address], [place] [address] Specimen Anatomical Collection Method Collection Time Receive d Time (Source) Location / / Volume Laterality Blood 03/04/2022 10:15 03/04/2022 AM CDT 10:38 AM CDT Narrative [facility] - 03/04/2022 11:14 AM CDT Labs 8:00 AM. Gisele Velasquez APRN LAB BLOOD ORDERABLES Performing Organization Address [facility]/ZIP [facility] Phon e Number [facility] [address] [place] [address] [address] Electrolyte Panel (03/04/2022 10:15 AM CDT) P athologist Signature Sodium Lvl 136 136 - 145 [facility] mEq/L Comment: Testing Performed at [facility], [address], [address], [place] [address] Potassium Lvl 4.4 3.5 - 5.1 mEq/L [facility] Comment: Testing Performed at B [facility], [address], [address], [place] [address] Chloride 98 98 - 107 mEq/L [facility] Comment: Testing Performed at B [facility], [address], [address], [place] [address] CO2 28 22 - 29 mEq/L [facility] Comment: Testing Performed at B [facility], [address], [place] [address] Anion Gap 10 4 - 14 mEq/L [facility] Comment: Testing Performed at [facility] Lab [facility], [address], [place] [address] Specimen Anatomical Collection Method Collection Time Receive d Time (Source) Location / / Volume Laterality Blood 03/04/2022 10:15 03/04/2022 AM CDT 10:23 AM CDT Narrative [facility] - 03/04/2022 10:46 AM CDT Labs 8:00 AM. Gisele Velasquez APRN LAB BLOOD ORDERABLES Performing Organization Address [facility]/ZIP [facility] Phon e Number [facility] [address] [place] [address] [address] after 02/17/2022 Insurance Payer Benefit Plan / Subscriber ID Effective Dates Phone Addre ss Type Group [employer] MANAGED C[employer]NA HMO POS [id number] 2013-Present [id number] HMO CARE OPEN ACCESS [place] [id number] y (Home) [place] [phone] Nain Addison Personal/Famil Self [address] [place] (Home) [place] [phone] Nain Addison Personal/Famil Self [address] [place] [place] (Home) [place] [address] Care Teams [employer] Inspector Relationship Specialty Start Date End Date Skyler Tsai MD PCP - External Referring Internal Medicine 04/07/[address] [place] [address] [place] [phone] Jocelin Cook MD PCP - General Endocrinology 05/04/[address] [place] [address] [id number]
--- OUTSIDE RECORDS SUMMARY | 2023-02-17 14:35 | XMS REPORT | Continuity of Care Document ---
:1955 Author Organization [facility] t Address [address] [place] [address] [place] [address] Care Team Providers Name Role Phone CAMMY BROWN Primary Care Physician Unavailable Rox Potter MD Attending Clinician Nannette Torres MA Attending Clinician Unavailable Nina Kendall MA Attending Clinician Unavailable Sherin Myers MD Attending Clinician Gisele Velasquez APRN Attending Clinician GISELE VELASQUEZ Attending Clinician Unavailable Jocelin Cook MD Attending Clinician JOCELIN COOK Attending Clinician Unavailable RADIOLOGY Attending Clinician Unavailable Radiology Attending Clinician Unavailable Doctor Unassigned, [place] Attending Clinician Unavailable Lapin_S Attending Clinician Unavailable REMA BOSCH Attending Clinician Unavailable KYLAH LESTER Admitting Clinician Unavailable Lapin_S Admitting Clinician Unavailable Payers Payer Name Policy Type Policy Number Effective Date Expiration Date Geovanna skinner [employer] [id number] 2016 00:00:00 [email or web address] [id number] 2013 00:00:00 Problems Condition Condition Condition Status Onset Resolution Last Treating Co mments Source Name Details Category Date Date Treatment Clinician Date Encounter Encounter Disease Active 2018-07 Uni vers for for 07-16 [place] 00 suspected suspected Roney rso endocrine endocrine n disorder disorder [facility] [place] Disease Active 2016-07 Unive rs 07-17 ity of 00:00: [place] 00 MD [facility] Hypertensi Hypertensi Disease Active 2016-07 U nivers on on 07-17 ity of 00:00: [place] 00 MD [facility] Neck Neck Disease Active Methodi infection infection 02-19 st 00:00: Hospita 00 l 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 02-07 st s without s without 00:00: Hosp hi myelopathy myelopathy 00 l Transient Transient Disease Active Met hodi cerebral cerebral 02-07 ischemia ischemia 00:00: Hospit a 00 l 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 Uni vers torticolli torticolli it y of s s 00:00: [place] 00 MD [facility] Thyroid Thyroid Disease Active Univers nodule nodule ity of [place] MD Mari haynes [facility] 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 ity of of [place] of thyroid [place] [facility] [place] Pituitary Pituitary Disease Active Uni vers microadeno microadeno it y of ma ginger [place] MD Mari haynes [facility] [place] Hyperprola Hyperprola Disease Active U nivers ctinemia ctinemia ity of [place] MD Mari haynes [facility] [place] Allergies, Adverse Reactions, Alerts Allergy Allergy Status Severity Reaction(s) Onset Inactive Treating Comm ents Source Name Type Date Date Clinician NO KNOWN Drug Active Univers ALLERGIE Class ity of [facility] [place] [facility] Family History Family Member Diagnosis Comments Start Date Stop Date Source Natural father Cancer [facility] Natural father Bone cancer Universit y of [place] MD Blackman Cance r [place] Natural father Colon cancer Universi ty [facility] MD Yehuda Curran r [place] Natural father Diabetes [facility] MD Yehuda Curran r [place] Natural father Lung cancer [facility]it y [facility] [place] MD Yehuda Curran [facility] [place] Natural mother Arthritis [facility] Natural mother Heart disease [facility] Natural mother Hypertension Universi ty of [place] MD Yehuda [facility]ran [facility] [place] Other [facility] Natural brother Leukemia [facility] [place] MD Yehuda Curran [facility] [place] Social History Social Habit Start Date Stop Date Quantity Comments Source History of tobacco Current smoker [facility] Sexual [facility] History of Social 2022-09-22 2022-09-[address] function 00:00:00 00:00:00 Hospital Tobacco use and 2022-03-10 2022-03-10 Smokeless tobacco [facility] exposure 00:00:00 00:00:00 non-user Hospital Alcohol intake 2022-03-04 2022-03-04 Current drinker Unive rsity of 00:00:00 00:00:00 of alcohol [facility] Cigarettes smoked 2017-05-17 2017-05-17 Univers ity of current (pack per 00:00:00 00:00:00 Manan Rick ) - Reported Cancer Ce nter Cigarette 2017-05-17 2017-05-17 University of pack-years 00:00:00 00:00:00 [place] [facility] Alcohol Comment 2017-05-17 2017-05-17 Occasional Universit y of 00:00:00 00:00:00 [place] [facility] Sex Ass[birth year] At [birth year] [facility] 00:00:00 00:00:00 Hospital Smoking Status Start Date Stop Date Source Ex-smoker 2022-03-10 00:00:00 2022-03-10 00:00:00 [facility] Never smoker [facility] Medications Ordered Filled Start Stop Current Ordering Indication Dosage Frequency Signature Comments Components Source Medication Medication Date Date Medication? Clinician (SIG) Name Name diazePAM Yes TITRATE Met hodi (VALIUM) 5 6-[address] MG tablet 00:00: TO 1 Hospita 00 TABLET BY l MOUTH 3 TIMES A DAY NEEDED DYSTONIA ezetimibe Yes 10mg QD Take 1 Method i (ZETIA) 10 3-22 tablet (10 st mg tablet 15:30: mg total) Hos charleen 34 by mouth l daily. aspirin Yes 81mg QD Take 1 Methodi (ECOTRIN) 3-22 tablet (81 st 81 MG 15:30: mg total) Hospita enteric 34 by mouth l coated daily. tablet metoprolol Yes 50mg Q.5D Take 1 Metho di succinate 3-22 tablet (50 st XL 15:30: mg total) Hospita (TOPROL-XL) 34 by mouth 2 l 50 mg 24 hr (two) tablet times a day. valsartan 2022-0 Yes 160mg Q.5D Take 1 Metho di (DIOVAN) 3-[address] 160 MG 15:30: (160 mg Hospita tablet 34 total) by l mouth 2 (two) times a day. hydroCHLORO 2023-0 Yes 25mg QD Take 1 Meth shellie thiazide 3-22 tablet (25 st (HYDRODIURI 15:30: mg total) H ospita L) 25 MG 34 by mouth l tablet daily. amLODIPine 3-0 Yes 10mg QD Take 1 Metho di (NORVASC) 3-22 tablet (10 st 10 mg 15:30: mg total) Hospita tablet 34 by mouth l daily. rosuvastati 2022-0 Yes 20mg QD Take 1 Meth shellie n (CRESTOR) 3-22 tablet (20 st 20 MG 15:30: mg total) Hospita tablet 34 by mouth l daily. tamsulosin 2022-0 Yes .4mg QD Take 1 Metho di (FLOMAX) 3-[address] 0.4 mg 15:30: (0.4 mg Hospita capsule 34 total) by l mouth daily with dinner. fluticasone 3-0 Yes QD daily. Meth shellie propionate 3-06 st (FLONASE) 00:00: Hospita 50 00 l mcg/actuati on nasal spray metoprolol 2022-0 3- No 50mg Q.5D Take 1 Meth shellie tartrate 2-22 tablet (50 st (LOPRESSOR) 00:00: 00:00 mg total) Hospita 50 mg 00 :00 by mouth 2 l tablet (two) times a day. fluorouraci 2022-0 Yes APPLY TO Wy thodi L (EFUDEX) 1-[address] 5 % cream 00:00: AREA ON Hospi ta 00 BACK TWICE l A DAY X 2 WEEKS, THEN RETURN TO CLINIC TO RECHECK. trihexyphen 2022-0 2023- No 2mg Q.[id number] Take 1 Methodi idyL 07-12 04-10 [id number] tablet (2 st (ARTANE) 2 00:00: 04:59 3D mg total) H ospita MG tablet 00 :00 by mouth 3 l (three) times a day with meals for 90 days. diazePAM 2021-07 No Titrate as Me thodi (VALIUM) 5 07-[address] MG tablet 00:00: 00:00 to 1 po Hosp hi 00 :00 TID prn l dystonia metoprolol Yes 50mg Take 50 mg U nivers tartrate 03-04 by mouth ity of (LOPRESSOR) 14:16: twice [place] 50 mg 13 daily. MD mikael Guerra [facility] aspirin 81 Yes 81mg Take 81 mg U nivers mg EC 03-04 by mouth. ity of tablet 14:14: [place] 04 MD Mari haynes [facility] hydroCHLORO Yes 25mg Take 25 mg Univers thiazide 03-04 by mouth. ity of (HYDRODIURI 14:14: [place] L) 25 mg 04 MD mikael Guerra [facility] coenzyme Yes 1{tbl} Take 1 Unive rs Q10 200 mg 03-04 tablet by ity of capsule 14:14: mouth. [place] 04 MD Mari haynes [facility] cholecalcif Yes 1000U Take 1,000 Univers telly, 03-04 Units by ity of vitamin D3, 14:14: mouth [place] 1,000 units 04 daily. MD mikael Guerra [facility] melatonin 3 2021- No 3mg Take 3 mg Univers mg tablet 03-04 by mouth ity o f 14:13: 00:00 nightly as [place] 58 :00 needed. MD Mari haynes [facility] diazePAM 2021- No Titrate as Me thodi (VALIUM) 5 12-[address] MG tablet 00:00: 00:00 to 1 po Hosp hi 00 :00 TID prn l dystonia diazePAM Yes Claustropho Take Two Univers (Valium) 5 5-21 lisa Tablets ity of mg tablet 00:00: (10 mg [place] 00 total) 30 MD Joe Sparks n [facility]. [facility] famotidine 2019-07 Yes 40mg Take 40 mg U nivers (PEPCID) 40 0-10 by mouth ity of mg tablet 00:00: daily. At [place] as 00 bed time. [facility] pantoprazol 2018-07 Yes 40mg QD Take 1 Meth shellie e 2-01 tablet (40 st (PROTONIX) 00:00: mg total) Ho spita 40 MG EC 00 by mouth l tablet daily. pantoprazol Yes 40mg Take 40 mg Univers e 9-04 by mouth. ity of (PROTONIX) 00:00: [place] 40 mg EC 00 MD tablet [facility] fluticasone Yes SPRAY 1 Uni vers propionate 8-29 SPRAY INTO ity of (FLONASE) 00:00: EACH [place] 50 00 NOSTRIL mcg/spray TWICE A [facility] nasal spray [facility] amLODIPine Yes TAKE 1 Unive rs (NORVASC) 3-29 TABLET BY ity o f 10 mg 00:00: ORAL ROUTE [place] tablet 00 EVERY DAY [facility] ezetimibe 2016-07 Yes TAKE 1 Univer s (ZETIA) 10 0-31 TABLET BY ity of mg tablet 00:00: MOUTH [place] 00 EVERY DAY [facility] cyclobenzap 2016-07 Yes TAKE 1 Univ ers rine 0-26 TABLET BY ity of (FLEXERIL) 00:00: ORAL ROUTE [place] 10 mg 00 EVERY OH tablet BEDTIME [facility] omeprazole Yes 20mg QD Take 1 Metho di (PriLOSEC) 7-[address] 20 MG 00:00: (20 mg Hospita capsule 00 total) by l mouth once daily. valsartan Yes BID Univers (DIOVAN) 1-25 ity of 160 mg 00:00: [place] tablet 00 MD [facility] rosuvastati Yes TAKE 1 Univ ers n (CRESTOR) 1-15 TABLET BY ity of 20 mg 00:00: MOUTH [place] tablet 00 EVERY DAY [facility] diclofenac Yes TAKE 1 Unive rs (VOLTAREN) 6-02 TABLET BY ity of 75 mg EC 00:00: MOUTH 2 [place] tablet 00 TIMES A Medical DAY Branch diclofenac Yes TAKE 1 Unive rs (VOLTAREN) 6-02 TABLET BY ity of 75 mg EC 00:00: MOUTH 2 [place] tablet 00 TIMES A Medical DAY Branch diclofenac Yes TAKE 1 Unive rs (VOLTAREN) 6-02 TABLET BY ity of 75 mg EC 00:00: MOUTH 2 [place] tablet 00 TIMES A Medical DAY Branch diclofenac Yes TAKE 1 Unive rs (VOLTAREN) 6-02 TABLET BY ity of 75 mg EC 00:00: MOUTH 2 [place] tablet 00 TIMES A Medical DAY Branch diclofenac Yes TAKE 1 Unive rs (VOLTAREN) 5-19 TABLET BY ity of 75 mg EC 00:00: MOUTH 2 [place] tablet 00 TIMES A Medical DAY Branch diclofenac Yes TAKE 1 Unive rs (VOLTAREN) 5-19 TABLET BY ity of 75 mg EC 00:00: MOUTH 2 [place] tablet 00 TIMES A Medical DAY Branch NAPROXEN 2014-07 Yes 500mg Take 500 Univ ers ORAL 2-18 mg by ity of 11:32: mouth. [address] NAPROXEN 2014-07 Yes 500mg Take 500 Univ ers ORAL 2-18 mg by ity of 11:32: mouth. [address] CYCLOBENZAP 2014-07 Yes Take by Uni vers RINE HCL 2-18 mouth. ity of (CYCLOBENZA 11:29: [place] CIELO ORAL) Medical Branch CYCLOBENZAP 2014-07 Yes Take by Uni vers RINE HCL 2-18 mouth. ity of (CYCLOBENZA 11:29: [place] CIELO ORAL) Medical Branch diazepam 2014-07 Yes Univers (VALIUM) 5 2-15 ity of mg tablet 00:00: [place] 00 Medical Branch diazepam 2014-07 Yes Univers (VALIUM) 5 2-15 ity of mg tablet 00:00: [place] 00 Medical Branch CRESTOR 20 2014-07 Yes Univers mg tablet 2-09 ity of 00:00: [place] 00 Medical Branch metoprolol 2014-07 Yes Univers tartrate 2-09 ity of (LOPRESSOR) 00:00: [place] 25 mg 00 Medical tablet Branch valsartan 2014-07 Yes Univers (DIOVAN) 2-09 ity of 160 mg 00:00: [place] tablet 00 Medical Branch ZETIA 10 mg 2014-07 Yes Univer s tablet 2-09 ity of 00:00: [place] 00 [facility] Branch gabapentin 2014-07 Yes Univers (NEURONTIN) 2-09 ity of 100 mg 00:00: [place] capsule 00 Medical Branch CRESTOR 20 2014-07 Yes Univers mg tablet 2-09 ity of 00:00: [place] 00 Medical Branch metoprolol 2014-07 Yes Univers tartrate 2- ity of (LOPRESSOR) 00:00: [place] 25 mg 00 Medical tablet Branch valsartan 2014-07 Yes Univers (DIOVAN) 2-09 ity of 160 mg 00:00: [place] tablet 00 Medical Branch ZETIA 10 mg 2014-07 Yes Univer s tablet -09 ity of 00:00: [place] 00 Medical Branch gabapentin 2014-07 Yes Univers (NEURONTIN) 2-09 ity of 100 mg 00:00: [place] capsule 00 Medical Branch Vital Signs Vital Name Observation Time Observation Value Comments Source Systolic blood 2022-09-22 20:30:00 126 mm[Hg] [facility] pressure Diastolic blood 2022-09-22 20:30:00 78 mm[Hg] [facility] pressure Heart rate 2022-09-22 20:30:00 67 /min [facility] Body temperature 2022-09-22 20:30:00 36.61 [facility] Body height 2022-09-22 20:30:00 185.4 cm [facility] Body weight 2022-09-22 20:30:00 107.502 kg [facility] BMI 2022-09-22 20:30:00 31.27 kg/m2 [facility] Systolic blood 2022-03-04 18:53:00 156 mm[Hg] Univer sity of pressure [facility] Diastolic blood 2022-03-04 18:53:00 79 mm[Hg] Unive rsity of pressure [facility] Heart rate 2022-03-04 18:53:00 74 /min Universi ty [facility] Body temperature 2022-03-04 18:53:00 36.72 Cassandra Univ ersity Nasima [facility] Respiratory rate 2022-03-04 18:53:00 20 /min Univ ersity [facility] Body weight 2022-03-04 18:53:00 106.8 kg Universi ty [facility]an [facility] BMI 2022-03-04 18:53:00 31.04 kg/m2 Universi ty [facility]an [facility] Oxygen saturation in 2022-03-04 18:53:00 96 /min University [facility] blood by Manan martinez Pulse oximetry Cancer Center Procedures Procedure Date / Time Performing Source Performed Clinician MRI PITUITARY W WO CONTRAST 2022-03-[address] [facility] 18:35:00 [facility] US HEAD NECK SOFT TISSUE 2022-03-04 Gisele Velasquez [facility] 16:15:00 [facility] ELECTROLYTE PANEL 2022-03-04 Gisele Velasquez [facility] 15:15:00 [facility] FOLLICLE STIMULATING HORMONE 2022-03-04 Gisele Velasquez [facility] LEVEL 15:15:00 [facility] LUTEINIZING HORMONE 2022-03-04 Gisele Velasquez [facility] 15:15:00 [facility] TESTOSTERONE LEVEL 2022-03-04 Gisele Velasquez [facility] 15:15:00 [facility] INSULIN LIKE GROWTH FACTOR 1 2022-03-04 Gisele Velasquez [facility] 15:15:00 [facility] PROLACTIN 2022-03-04 Gisele Velasquez [facility] [place] 15:15:00 [facility] FREE THYROXINE 2022-03-04 Gisele Velasquez [facility] [place] 15:15:00 [facility] THYROID STIMULATING HORMONE 2022-03-[address] [facility] 15:15:00 [facility] ADRENOCORTICOTROPIC HORMONE 2022-03-[address] [facility] 15:15:00 [facility] CORTISOL 2022-03-04 Gisele Velasquez [facility] [place] 15:15:00 [facility] XR KUB 2021-08-05 Requisition, Paper [facility] 22:40:11 Medical Branch ASSIGNMENT OF BENEFITS 2021-08-05 Doctor Unassigned, [facility] 22:17:02 [place] [facility] Plan of Care Planned Activity Planned Date Details Comments Source Future Scheduled 2023-02-02 Screening for [facility] Test 20:07:58 malignant neoplasm of colon (procedure) [code = 148682534] Future Scheduled 2023-02-02 Screening for [facility] Test 20:07:58 malignant neoplasm of colon (procedure) [code = 355513437] Future Scheduled 2023-02-02 Screening for [facility] Test 20:07:58 malignant neoplasm of colon (procedure) [code = 915701968] Future Scheduled 2023-02-02 COVID-19 VACCINE (#1) [facility] Test 20:07:58 [code = COVID-19 VACCINE (#1)] Future Scheduled 2023-02-02 Screening for [facility] Test 20:07:58 malignant neoplasm of colon (procedure) [code = 711092460] Future Scheduled 2023-02-02 Screening for [facility] Test 20:07:58 malignant neoplasm of colon (procedure) [code = 959328402] Future Scheduled 2023-02-02 SHINGLES VACCINES (1 [facility] Test 20:07:58 of 2) [code = SHINGLES VACCINES (1 of 2)] Future Scheduled 2023-02-02 65+ PNEUMOCOCCAL [facility] Test 20:07:58 VACCINE (1 - PCV) [code = 65+ PNEUMOCOCCAL VACCINE (1 - PCV)] Future Scheduled 2023-02-02 INFLUENZA VACCINE Method is Hospital Test 20:07:58 [code = INFLUENZA VACCINE] Future Scheduled 2022-09-09 COVID-19 Vaccination [facility] Test 10:35:01 (#1) [code = COVID-19 MD [facility] Vaccination (#1)] Center Encounters Start End Encounter Admission Attending Care Care Encounter Source Date/Time Date/Time Type Type Clinicians Facility Department ID 2022-12-03 2022-12-03 Refill Ondo, 1.2.840.1 [id number] Methodi 00:00:00 00:00:00 Rox Bolanos50.1.1 658 [facility] 3.430.2.7 Hospit a .3.820598 l .8 2022-09-22 2022-09-22 Clinical Ondo, 1.2.840.1 [id number] Methodi 15:15:00 16:03:52 Support Rox Wick.1.[address] [facility] 3.430.2.7 Hospit a .3.855130 l .8 2022-09-22 2022-09-22 Travel 1.2.840.1 1.2.060.949 [id number] Methodi 00:00:00 00:00:[address] 3.430.2.7 0.2.7.3.698 Ho spita .3.245095 084.8 l .8 2022-09-22 2022-09-22 Outpatient ONDO, [facility] [id number] [place] 00:00:00 00:00:00 ROX [address] 2022-08-31 2022-08-31 Transcribe On, 1.2.840.1 [id number] Methodi 00:00:00 00:00:00 Orders Rox 46340.1.[address] [place] 3.430.2.7 Hospit a .3.060903 l .8 2022-07-29 2022-07-29 Telephone Chantellus, 1.2.840.1 [id number] Methodi 00:00:00 00:00:[address] 3.430.2.7 Hospit a .3.321468 l .8 2022-07-12 2022-07-12 Orders Ondo, 1.2.840.1 [id number] Methodi 00:00:00 00:00:00 Only Rox [address]87.1.[address] [facility] 3.430.2.7 Hospit a .3.459890 l .8 2022-07-12 2022-07-12 Telephone Kendall, 1.2.840.1 [id number] Methodi 00:00:00 00:00:[address] 3.430.2.7 Hospit a .3.775860 l .8 2022-06-22 2022-06-22 Clinical Ondo, 1.2.840.1 [id number] Methodi 11:15:00 11:55:14 Support Rox 27213.1.[address] [place] 3.430.2.7 Hospit a .3.627304 l .8 2022-06-22 2022-06-22 Travel 1.2.840.1 1.2.460.932 4841 [id number] Methodi 00:00:00 00:00:[address] 3.430.2.7 0.2.7.3.698 Ho spita .3.968202 084.8 l .8 2022-06-22 2022-06-22 Outpatient [facility] [id number] [place] 00:00:00 00:00:[address] ROX [address] 2022-06-07 2022-06-07 Transcribe Ondo, 1.2.840.1 [id number] Methodi 00:00:00 00:00:00 Orders Rox 76799.1.[address] [place] 3.430.2.7 Hospit a .3.017083 l .8 2022-05-05 2022-05-05 Telephone Kendall, 1.2.840.1 [id number] Methodi 00:00:00 00:00:[address] 3.430.2.7 Hospit a .3.040047 l .8 2022-03-10 2022-03-10 Clinical Ondo, 1.2.840.1 [id number] Methodi 13:45:00 14:15:29 Support Rox 72402.1.[address] [place] 3.430.2.7 Hospit a .3.740998 l .8 2022-03-10 2022-03-10 Travel 1.2.840.1 1.2.408.840 [id number] Methodi 00:00:00 00:00:[address] 3.430.2.7 0.2.7.3.698 Ho spita .3.439718 084.8 l .8 2022-03-10 2022-03-10 [facility] [id number] [address] [place] 00:00:00 00:00:00 ROX [address] 2022-03-05 2022-03-05 Orders [facility], 1.2.840.1 [id number] Univers 00:00:00 00:00:00 Only Rami 78855.1.1 ity of 3.412.2.7 [place] .3.084319 MD Heller8 [facility] 2022-03-04 2022-03-04 [facility], 1.2.840.1 [id number] [facility] 09:49:38 23:59:00 Encounter Gisele R 76656.1.1 i ty of 3.412.2.7 [place] .3.784940 MD Heller8 [facility] 2022-03-04 2022-03-04 Outpatient NICOLÁS [facility] [id number] [place] 09:49:38 23:59:00 GISELE Roldan o ivy 2022-03-04 2022-03-04 [facility] Jocelin Cook 1.2.840.1 [id number] [facility] 14:00:00 14:58:55 Visit 15613.1.1 ity of 3.412.2.7 [place] .3.381298 MD Heller8 [facility] 2022-03-04 2022-03-04 Outpatient SHADY COOK JOCELIN [facility] [id number] [place] 13:48:14 14:58:55 Jamarcarolina haynes 2022-03-04 2022-03-04 [facility], 1.2.840.1 [id number] [facility] 12:15:00 14:00:00 Procedure Gisele R 45693.1.1 i ty of 3.412.2.7 [place] .3.471544 MD Heller8 [facility] 2022-03-04 2022-03-04 Outpatient NICOLÁS [facility] [id number] [place] 12:12:43 12:12:43 GISELE Jamar o n 2022-03-04 2022-03-04 [facility] 1.2.840.1 [id number] [facility] 10:30:00 11:30:00 Procedure Gisele R 41060.1.1 i ty of 3.412.2.7 [place] .3.977400 .8 [facility] 2022-03-04 2022-03-04 Outpatient SHADY VELASQUEZ [facility] [id number] 10:17:37 10:17:37 GISELE Roldan vianey n 2022-03-04 2022-03-04 Travel 1.2.840.1 1.2.522.390 [id number] Univers 00:00:00 00:00:00 89952.1.1 350.1.13.41 ity of 3.412.2.7 2.2.7.3.698 [place] .3.998830 084.8 .8 [facility] 2021-12-08 2021-12-08 Outpatient [facility] [id number] [place] 00:00:00 00:00:00 ROX 695 Method i 2021-09-08 2021-09-08 Outpatient [facility] [id number] 514 [place] 00:00:00 00:00:00 ROX 198 Method i 2021-08-05 2021-08-05 Outpatient R RADIOLOGY [facility] [id number] Univers 16:20:38 23:59:00 ity of [facility] 2021-08-05 2021-08-05 Hospital Radiology [facility] 1.2.840.114 [id number] Univers 16:15:00 23:59:00 Encounter ANGLEALFREDO 350.1.13.10 ity of SHE[place] 4.2.7.2.686 [facility] [id number] [facility] 807 Branch 2021-08-05 2021-08-05 Orders Doctor JOSE L 1.2.840.114 [id number] Univers 00:00:00 00:00:00 Only Unassigned, LUANN 350.1.13.10 ity of [facility] 4.2.7.2.686 [facility] [id number] [facility] 009 Branch 2021-05-26 2021-05-26 Outpatient [facility] [id number] [place] 00:00:00 00:00:[address] ROX [address] 2021-05-06 2021-05-06 Outpatient Lapin_S [facility] [id number] [place] 05:46:00 05:46:00 [id number] [facility] 2021-02-17 2021-02-17 Outpatient ONDO, [facility] [id number] [address] [place] 00:00:00 00:00:00 ROX [address] 2020-12-25 2020-12-25 Outpatient EL DANITZA, [facility] MDA [id number] 10:59:45 12:29:04 REMA haynes 2020-12-12 2020-12-12 Outpatient EL VELASQUEZ, MDA MDA [id number] 11:00:59 11:00:59 GISELE haynes 2020-12-12 2020-12-12 Outpatient EL VELASQUEZ, MDA MDA [id number] 08:47:07 08:47:07 GISELE haynes 2020-12-12 2020-12-12 Outpatient EL VELASQUEZ, MDA MDA [id number] 08:45:52 08:45:52 GISELE haynes 2020-10-28 2020-10-28 Outpatient ONDO, [facility] [id number] [place] 00:00:00 00:00:00 ROX 694 Method i 2020-07-15 2020-07-15 Outpatient ONDO, [facility] [id number] [place] 00:00:00 00:00:00 ROX 708 Method i 2020-06-04 2020-06-04 Outpatient SHADY BOSCH [facility] MDA [id number] 13:17:03 13:17:03 REMA haynes 2020-06-02 2020-06-02 Outpatient EL VELASQUEZ, MDA MDA [id number] 09:10:41 09:32:58 GISELE haynes 2020-04-01 2020-04-01 Outpatient [facility], [facility] [id number] [address] [place] 00:00:00 00:00:00 ROX 972 Method i 2019-12-04 2019-12-04 Outpatient [facility], [facility] [id number] [address] [place] 00:00:00 00:00:00 ROX 399 Method i 2019-11-23 2019-11-23 Outpatient SHADY BOSCH MDA MDA [id number] 10:17:37 10:17:37 REMA haynes 2019-11-23 2019-11-23 Outpatient SHADY VELASQUEZ [facility] [id number] 08:21:01 08:21:01 GISELE haynes Results Test Description Test Time Test Comments Results Result Comments Source Insulin-Like Growth Factor I 2022-03-12 17:30:35 Test Item Value Reference Range Interpretation Comme nts Insulin-Like Growth 160 ng/mL 32-209 Factor 1-Manrique (test code = 2484-4) IGF Z-score (test code 1.28 See_Comment ---- ADDITIONAL = 15765-8) INFORMATION---- This test was develo ped and its performance characteristics determined by [facility] in a man ner consistent with CLIArequirement s. This test has not been cleared or approved bythe U.S. Food and Drug A dministration. Test Performed by:[facility] [id number] [place] [id number] Director: Rox ramirez M.D. Ph.D.; CLIA# [id number] [Aut omated message] The system which ge nerated this result transmitted ref erence range: -2.0 - 2.0 SD. The ref erence range was not used to interpr et this result as normal/abnormal . KD (test code = KD) Labs 8:00 AM. [facility] [id number] 19:32:02 Test Item Value Reference Range Interpretation Comments ACTH (test 16 pg/mL 7-63 Results greater than code = 2141-0) 1826 pg/mL ma y not be reliable due to matrix effect w ith extended diluti on as it exceeds the concrete stone finisher's recommended [place] it. ACTH reference intervals are established for the morning hours f rom 7-10 am. Due to the circadian rhyth m of ACTH levels in plasma, the [facility] ple collection time must be noted. Cauti on should be exerc ised when interpreti ng such values and done in conjunction with clinical contex t. KD (test code Labs 8:00 AM.This = KD) lab cannot be scheduled at the following locations due to collection/proccess ing restrictions:[place] [facility] [facility] - DIWH DIAG LAB CTRCABI - CABI DIAG LAB CTR [facility] 16:59:29 Test Item Value Reference Range Interpretation Comments Prolactin (test 13.9 ng/mL 4.0-15.[address] than code = 2842-3) 4700.0 ng/mL may not be reliable due to matrix effect w ith extended diluti on as it exceeds the concrete stone finisher s recommended l imit. Caution should be exercised when interpreting wilson ch values and done in conjunction wit h clinical contex t. KD (test code = Labs 8:00 AM. KD) [facility] [id number] 16:59:28 Test Item Value Reference Range Interpretation Comments Testoster Tot (test 356 ng/dL 193-740 Referenc e Ranges: code = 2986-8) Male: Age 20 - 49 249 - 836 Age >=50 193 - 740 Femal e: Age 20 - 49 8 - 48 Age >=50 3 - 41 KD (test code = Labs 8:00 AM. KD) [facility] [id number] 16:59:27 Test Item Value Reference Range Interpretation Comments FSH (test code = 17.5 See_Comment H Female Foll icle 5571) Stimulating Hor karla Reference Range s: LOW HIGHFollic ular 3.5 12.5Ovulati on 4.7 21.5Luteal 1.7 7.7Postmenopaus e 25.8 134.8 [Automated mess age] The system Hookflash generated this result transmit yair reference range : 1.5 - 12.4 mIU/mL. The reference range was not used to interpret this result as normal/abnormal . KD (test code = KD) Labs 8:00 AM. Lab Interpretation Abnormal (test code = 67583-1) [facility]LH[facility]22-[facility] 16:59:26 Test Item Value Reference Range Interpretation Comments LH (test code = 13.4 See_Comment H Female Lutei kelsea 02108-3) Hormone Referen ce Ranges: LOW HIGHFollicular 2.4 12.6Ovulation 1 4.0 95.6Luteal 1.0 11.4Postmenopau se 7.7 58.5 [Autom ated message] The sy stem which generated this result transmit yair reference range : 1.7 - 8.6 mIU/mL. T he reference range was not used to interpret this result as normal/abnormal . KD (test code = KD) Labs 8:00 AM. Lab Interpretation Abnormal (test code = 28923-1) [facility]ort[facility], [id number] 16:14:05 Test Item Value Reference Range Interpretation Comments Cortisol, Total 12.26 See_Comment Cortisol ref erence (test code = intervals are 2143-6) established for the morning hours f rom 6-10 am and afternoo n hours 4-8 pm. Due to circadian rhyth m of cortisol levels in serum and plasm a, the sample collecti on time must be noted. Caution should be exerc ised when interpreti ng such values and done in conjunction wit h clinical contex t. Serum Cortisol Refere nce Ranges: Morning (6-10am) (4.8 - 19.5)Afternoon (4-8pm) (2.5 - 11.9) Te sting Performed at [facility] Lab General Accountant [facility], [address], [address], [place] [address] [Automate d message] The sy stem which generated this result transmit yair reference range : 4.80 - 19.50 mcg/dL. T he reference range was not used to interpr et this result as normal/abnormal . KD (test code = Labs 8:00 AM. KD) [facility] [id number] 16:07:06 Test Item Value Reference Range Interpretation Comments TSH (test code = 2.94 See_Comment Note: New M ethodology 95306-9) and Reference R riley change effectiv e 10/20/2017 at 14 00 Testing Perform ed at [facility] Lab Ambulat ory Care Bldg, [address], [address], [facility] [place] [address] [Automated mess age] The system which ge nerated this result tra nsmitted reference range : 0.27 - 4.20 mcunit/mL. The reference range was not used to interpr et this result as normal/abnormal . KD (test code = Labs 8:00 AM. KD) [facility] PatersonT4 [id number] 16:07:05 Test Item Value Reference Range Interpretation Comments T4 Free (test 1.22 ng/dL 0.93-1.70 Testing Perfor med at code = 3024-7) [facility] Lab Ambul atory Care Bldg, [address], [address], [place], [place] [address] KD (test code = Labs 8:00 AM. KD) [facility]te [id number] 15:46:24 Test Item Value Reference Range Interpretation Comments Sodium Lvl (test 136 See_Comment Testing Per formed at code = 2951-2) [facility] Lab Ambul atory Care [facility], [address], [address], [place] [address] [Automate d message] The sy stem which generated this result transmit yair reference range : 136 - 145 mEq/L. Th e reference range was not used to int erpret this result as normal/abnormal . Potassium Lvl (test 4.4 See_Comment Testing Performed at code = 2823-3) [facility] Lab Ambul atory Care Bldg, [address], [place] [address] [Automate d message] The sy stem which generated this result transmit yair reference range : 3.5 - 5.1 mEq/L. Th e reference range was not used to int erpret this result as normal/abnormal . Chloride (test code 98 See_Comment Testing Performed at = 2074-0) [facility] Lab Ambulat ory Care Bldg, [address], [address], [place] [address] [Automate d message] The sy stem which generated this result transmit yair reference range : 98 - 107 mEq/L. The reference range was not used to int erpret this result as normal/abnormal . CO2 (test code = 28 See_Comment Testing Per formed at 2028-03) [facility] Lab Ambulat ory Care Bldg, [address], [address], [place] [address] [Automate d message] The sy stem which generated this result transmit yair reference range : 22 - 29 mEq/L. The reference range was not used to int erpret this result as normal/abnormal . Anion Gap (test 10 See_Comment Testing Perf ormed at code = 07652-8) [facility], [address], [place] [address] [Automate d message] The sy stem which generated this result transmit yair reference range : 4 - 14 mEq/L. The reference range was not used to int erpret this result as normal/abnormal . KD (test code = Labs 8:00 AM. KD) [facility] [place]
[2023-02-17] MEDS ORDERED: IPRATROPIUM BROM 0.5MG/2.5ML ONE (14:52)
[2023-02-17] MEDS ORDERED: NA CHLORIDE 0.9% 1,000 ML ONE (14:52)
[2023-02-17] MEDS ORDERED: LEVALBUTEROL 1.25 MG/3 ML NEB ONE (14:52)
[2023-02-17] MEDS ORDERED: PIPERACIL/TAZO 3.375 GM VIAL IV ONE (14:53)
[2023-02-17] MEDS ORDERED: NA CHLORIDE 0.9% 100 ML ONE (14:53)
--- NOTE | 2023-02-17 15:23 | RAD REPORT ---
EXAM DESCRIPTION: RAD - Chest Single View - 02/17/2023 3:09 pm CLINICAL HISTORY: CHEST PAIN COMPARISON: Abdomen 1 View (KUB) dated 08/27/2020; Chest Pa And Lat (2 Views) dated 03/26/2020; Chest Pa And Lat (2 Views) dated 07/12/2017; Chest Single View dated 02/17/2017 FINDINGS: Lines: None. Lungs: No evidence of edema or pneumonia. Pleural: No significant pleural effusions or pneumothorax. Cardiac: Mild cardiomegaly. Mediastinum: Within normal limits. Bones: No acute fractures. Sternotomy. Other: None IMPRESSION: No acute cardiopulmonary disease.
[2023-02-17 15:28] LABS: Absolute Lymphocytes (CBC) 3.8 K/uL (0.7-4.9); Hematocrit 48.9 % (39.6-49.0); Lymphocytes % 29.9 % (15.3-44.8); MCV 92.5 fL (80-100); MPV 8.4 fL (7.6-11.3); Platelets 192 thou/uL (152-406); RBC Red Blood Cell Count 5.29 M/uL (4.33-5.43)
[2023-02-17 15:29] LABS: Protime INR 1.05
[2023-02-17 15:36] LABS: Albumin 4.2 g/dL (3.4-5.0); Bilirubin Direct 0.2 mg/dL (0-0.2); Bilirubin Indirect, Calculated 0.6 mg/dL (0.2-0.8); Bilirubin Total 0.8 mg/dL (0.2-1.0); Magnesium 2.3 mg/dL (1.6-2.4); Potassium 3.9 mEq/L (3.5-5.1); Protein, Total 7.4 g/dL (6.4-8.2); Troponin High Sensitivity 11.9 pg/mL (<58.9)
--- NOTE | 2023-02-17 16:58 | RAD REPORT ---
EXAM DESCRIPTION: US - UPPER EXTREMITY VENOUS UNILATE - 02/17/2023 4:44 pm CLINICAL HISTORY: Pain swelling COMPARISON: None. TECHNIQUE: Real-time sonographic evaluation of the left upper extremity deep venous system was perfo rmed. FINDINGS: Normal compressibility, flow augmentation, phasic flow and spontaneous flow is identified in the left upper extremity deep venous system. No intraluminal filling defects seen. IMPRESSION: No DVT in the left upper extremity.
--- NOTE | 2023-02-17 17:08 | EDPHYS ---
Physician Documentation [facility] Name: Nain Addison Age: 67 yrs Sex: Male : 1955 Arrival Date: 02/17/2023 Time: 14:30 Bed 14 Private MD: ED Physician Erick Blackman HPI: 02/17 15:48 This 67 yrs old Male presents to ER via Ambulatory with complaints of Blood Pressure sb4 Problem, Arm Pain. 15:48 Onset: The symptoms/episode began/occurred 3 week(s) ago. patient reports vague left sb4 upper extremity pain, mainly in the biceps and armpit area that has been going on for about [address] Tsai today to discuss his symptoms and recommended he be evaluated in the ED as he has a history of CABG. patient reports some mild left sided chest pain associated with the arm pain. he denies any shortness of breath or numbness in the extremity. Historical: - Allergies: 14:53 No Known Allergies; bp - Home Meds: 14:53 valsartan 160 mg Oral tab 1 tab 2 times per day [Active]; rosuvastatin 20 mg Oral tab 1 bp tab once daily [Active]; ezetimibe 10 mg Oral 1 tab once daily [Active]; hydrochlorothiazide 25 mg Oral tab 1 tab once daily [Active]; omeprazole 20 mg Oral cpDR 1 cap once daily [Active]; aspirin 81 mg Oral chew 1 tab once daily [Active]; metoprolol tartrate 50 mg Oral tab 1 tab 2 times per day [Active]; amlodipine 10 mg tab 1 tab once daily [Active]; - PMHx: 14:53 GERD; Hypertension; High Cholesterol; Myocardial infarction; bp - Immunization history:: Adult Immunizations up to date. - Social history:: Smoking status: Patient denies any tobacco usage or history of. ROS: 15:50 Constitutional: Negative for fever, chills, and weight loss. sb4 15:50 MS/extremity: Positive for pain, tenderness, of the left arm. 15:50 All other systems are negative. Exam: 15:50 Constitutional: This is a well developed, well nourished patient who is awake, alert, sb4 and in no acute distress. Head/Face: Normocephalic, atraumatic. Eyes: Extra-ocular motions intact. Periorbital areas with no swelling, redness, or edema. ENT: Mucous membranes moist. Cardiovascular: Regular rate and rhythm with a normal S1 and S2. Respiratory: Lungs have equal breath sounds bilaterally, clear to auscultation and percussion. No rales, rhonchi or wheezes noted. No increased work of breathing, no retractions or nasal flaring. Abdomen/GI: Soft, non-tender, no distension. Back: No spinal tenderness. No costovertebral tenderness. Full range of motion. Skin: Warm, dry with normal turgor. Normal color with no rashes, no lesions, and no evidence of cellulitis. MS/ Extremity: Pulses equal, no cyanosis. Neurovascular intact. Full, normal range of motion. Neuro: Awake and alert, GCS 15, oriented to person, place, time, and situation. Cranial nerves II-XII grossly intact. Motor strength 5/5 in all extremities. Sensory grossly intact. Cerebellar exam normal. Normal gait. Vital Signs: 14:52 BP 180 / 88; Pulse 62; Resp 16; Temp 98; Pulse Ox 98% ; Weight 108.86 kg; Height 6 ft. bp 1 in. ; 15:56 BP 150 / 84; Pulse 58; Resp 17 S; Pulse Ox 100% on R/A; kc6 16:56 BP 158 / 90; Pulse 61; Resp 20 S; Pulse Ox 100% on R/A; kc6 14:52 Body Mass Index 31.66 (108.86 kg, 185.42 cm) bp MDM: 14:37 Patient medically screened. sb4 15:50 Differential diagnosis: ACS, DVT, PE, muscle strain, pinched nerve. sb4 17:06 Data reviewed: vital signs, nurses notes, lab test result(s), EKG, radiologic studies, sb4 and as a result, I will discharge patient. Care significantly affected by the following chronic conditions: Hypertension. Counseling: I had a detailed discussion with the patient and/or guardian regarding the historical points, exam findings, and any diagnostic results supporting the discharge/admit diagnosis, the presence of at least one elevated blood pressure reading (>120/80) during this emergency department visit, lab results, radiology results, to return to the emergency department if symptoms worsen or persist or if there are any questions or concerns that arise at home. ED course: discussed with patient that his pain is most likely musculoskeletal and that the pain is causing his elevated blood pressure. cardiac workup is negative. ddimer appropriate for age range. patient requesting to go home. 02/17 14:55 Order name: Basic Metabolic Panel; Complete Time: 15:43 sb4 02/17 14:55 Order name: CBC with Diff; Complete Time: 15:35 sb4 02/17 14:55 Order name: D-Dimer; Complete Time: 15:32 sb4 02/17 14:55 Order name: LFT's; Complete Time: 15:43 sb4 02/17 14:55 Order name: Magnesium; Complete Time: 15:43 sb4 02/17 14:55 Order name: NT PRO-BNP; Complete Time: 15:43 sb4 02/17 14:55 Order name: PT-INR; Complete Time: 15:32 sb4 02/17 14:55 Order name: Troponin HS; Complete Time: 15:43 sb4 02/17 14:55 Order name: XRAY Chest (1 view); Complete Time: 15:23 sb4 02/17 15:48 Order name: UPPER EXTREMITY VENOUS UNILATE; Complete Time: 17:01 EDMS 02/17 14:55 Order name: EKG; Complete Time: 14:55 sb4 02/17 14:55 Order name: Cardiac monitoring; Complete Time: 15:12 sb4 02/17 14:55 Order name: EKG - Nurse/Tech; Complete Time: 15:12 sb4 02/17 14:55 Order name: IV Saline Lock; Complete Time: 15:12 sb4 02/17 14:55 Order name: Labs collected and sent; Complete Time: 15:12 sb4 02/17 14:55 Order name: O2 Per Protocol; Complete Time: 15:12 sb4 02/17 14:55 Order name: O2 Sat Monitoring; Complete Time: 15:12 sb4 EC:03 Rate is 56 beats/min. Rhythm is irregular, Sinus bradycardia. MD interval is normal at sb4 188 msec. QRS interval is normal at 102 msec. QT interval is normal at 430 msec. T waves are Normal. Clinical impression: Normal ECG. Interpreted by me. Reviewed by me. Administered Medications: 17:36 Drug: Hydrocodone-Acetaminophen PO (7.5 mg-325 mg) 1 tabs Route: PO; kc6 17:42 Follow up: Response: No adverse reaction; Pain is decreased; RASS: Alert and Calm (0) kc6 Disposition Summary: 02/17/23 17:07 Discharge Ordered Location: Home sb4 Problem: new sb4 Symptoms: have improved sb4 Condition: Stable sb4 Diagnosis - Strain of muscle, fascia and tendon of long head of biceps, left arm sb4 Followup: sb4 - With: Aakash Tsai MD - When: As needed - Reason: Recheck today's complaints, Continuance of care, Re-evaluation by your physician Discharge Instructions: - Discharge Summary Sheet sb4 - Proximal Biceps Tendinitis and Tenosynovitis sb4 Forms: - Medication Reconciliation Form sb4 - Thank You Letter sb4 - Antibiotic Education sb4 - Prescription Opioid Use sb4 - Patient Portal Instructions sb4 - Leadership Thank You Letter sb4 Prescriptions: - meloxicam 7.5 mg Oral tablet - take 1 tablet by ORAL route daily; 12 tablet; Refills: 0, Product Selection sb4 Permitted Signatures: Dispatcher [employer] Cesar Brown RN RN bp Kristy Garnett RN RN kc6 Ary Stoddard, PA-C PA-C sb4 Corrections: (The following items were deleted from the chart) 15:47 15:45 Extremity Venous Uni Ltd+US.RAD.BRZ ordered. ED EDMS
--- NOTE | 2023-02-17 17:08 | ER ---
Nurse's Notes [facility] Name: Nain Addison Age: 67 yrs Sex: Male : 1955 Arrival Date: 02/17/2023 Time: 14:30 Bed 14 Private MD: Diagnosis: Strain of muscle, fascia and tendon of long head of biceps, left arm Presentation: 02/17 14:52 Chief complaint: Patient states: SENT BY DR BROWN FOR HTN. Coronavirus screen: At this bp time, the client does not indicate any symptoms associated with coronavirus-19. Ebola Screen: No symptoms or risks identified at this time. Initial Sepsis Screen: Does the patient meet any 2 criteria? No. Patient's initial sepsis screen is negative. Does the patient have a suspected source of infection? No. Patient's initial sepsis screen is negative. Risk Assessment: Do you want to hurt yourself or someone else? Patient reports no desire to harm self or others. Onset of symptoms was February 17, 2023. 14:52 Method Of Arrival: Ambulatory bp 14:52 Acuity: MARIA A 3 bp Triage Assessment: 14:53 General: Appears in no apparent distress. Behavior is calm, cooperative, appropriate bp for age. Pain: Complains of pain in left arm. EENT: No deficits noted. Neuro: No deficits noted. Cardiovascular: No deficits noted. Respiratory: No deficits noted. Historical: - Allergies: 14:53 No Known Allergies; bp - Home Meds: 14:53 valsartan 160 mg Oral tab 1 tab 2 times per day [Active]; rosuvastatin 20 mg Oral tab 1 bp tab once daily [Active]; ezetimibe 10 mg Oral 1 tab once daily [Active]; hydrochlorothiazide 25 mg Oral tab 1 tab once daily [Active]; omeprazole 20 mg Oral cpDR 1 cap once daily [Active]; aspirin 81 mg Oral chew 1 tab once daily [Active]; metoprolol tartrate 50 mg Oral tab 1 tab 2 times per day [Active]; amlodipine 10 mg tab 1 tab once daily [Active]; - PMHx: 14:53 GERD; Hypertension; High Cholesterol; Myocardial infarction; bp - Immunization history:: Adult Immunizations up to date. - Social history:: Smoking status: Patient denies any tobacco usage or history of. Screenin:12 [facility] ED Fall Risk Assessment (Adult) History of falling in the last 3 months, kc6 including since admission No falls in past 3 months (0 pts) Confusion or Disorientation No (0 pts) Intoxicated or Sedated No (0 pts) Impaired Gait No (0 pts) Mobility Assist Device Used No (0 pt) Altered Elimination No (0 pt) Score/Fall Risk Level 0 - 2 = Low Risk. Abuse screen: Denies threats or abuse. Denies injuries from another. Nutritional screening: No deficits noted. Tuberculosis screening: No symptoms or risk factors identified. Assessment: 15:12 General: Appears in no apparent distress. comfortable, Behavior is calm, cooperative, kc6 appropriate for age. Pain: Complains of pain in anterior aspect of left upper chest and left breast and left arm Pain does not radiate. Neuro: Level of Consciousness is awake, alert, obeys commands, Oriented to person, place, time, situation, Appropriate for age. Cardiovascular: Heart tones S1 S2 present Capillary refill < 3 seconds Rhythm is sinus bradycardia. Respiratory: Airway is patent Trachea midline Respiratory effort is even, unlabored, Respiratory pattern is regular, symmetrical, Denies shortness of breath. GI: No signs and/or symptoms were reported involving the gastrointestinal system. : No signs and/or symptoms were reported regarding the genitourinary system. EENT: No signs and/or symptoms were reported regarding the EENT system. Derm: No signs and/or symptoms reported regarding the dermatologic system. Skin is intact, is healthy with good turgor, Skin is pink, warm \T\ dry. Musculoskeletal: No signs and/or symptoms reported regarding the musculoskeletal system. Circulation, motion, and sensation intact. Capillary refill < 3 seconds, Range of motion: intact in all extremities. 16:50 Reassessment: Patient appears in no apparent distress at this time. No changes from kc6 previously documented assessment. Patient and/or family updated on plan of care and expected duration. Pain level reassessed. Patient is alert, oriented x 3, equal unlabored respirations, skin warm/dry/pink. Vital Signs: 14:52 BP 180 / 88; Pulse 62; Resp 16; Temp 98; Pulse Ox 98% ; Weight 108.86 kg; Height 6 ft. bp 1 in. ; 15:56 BP 150 / 84; Pulse 58; Resp 17 S; Pulse Ox 100% on R/A; kc6 16:56 BP 158 / 90; Pulse 61; Resp 20 S; Pulse Ox 100% on R/A; kc6 14:52 Body Mass Index 31.66 (108.86 kg, 185.42 cm) bp ED Course: 14:32 Patient arrived in ED. ts1 14:37 Ary Stoddard PA-C is PHCP. sb4 14:37 Erick Blackman MD is Attending Physician. sb4 14:53 Triage completed. bp 14:53 Arm band placed on. bp 15:11 XRAY Chest (1 view) In Process Unspecified. EDMS 15:11 Kristy Garnett, RN is Primary Nurse. kc6 15:12 Patient has correct armband on for positive identification. Bed in low position. Call kc6 light in reach. Side rails up X 1. 15:12 Inserted saline lock: 20 gauge in right antecubital area, using aseptic technique. kc6 Blood collected. 16:46 UPPER EXTREMITY VENOUS UNILATE In Process Unspecified. EDMS 17:07 Aakash Brown MD is Referral Physician. sb4 17:41 No provider procedures requiring assistance completed. IV discontinued, intact, kc6 bleeding controlled, No redness/swelling at site. Pressure dressing applied. Administered Medications: 17:36 Drug: Hydrocodone-Acetaminophen PO (7.5 mg-325 mg) 1 tabs Route: PO; kc6 17:42 Follow up: Response: No adverse reaction; Pain is decreased; RASS: Alert and Calm (0) kc6 Medication: 17:42 VIS not applicable for this client. kc6 Outcome: 17:07 Discharge ordered by . sb4 17:42 Discharged to home ambulatory. kc6 17:42 Condition: improved 17:42 Discharge instructions given to patient, Instructed on discharge instructions, follow up and referral plans. medication usage, Demonstrated understanding of instructions, follow-up care, medications, Prescriptions given X 1. 17:42 Patient left the ED. kc6 Signatures: Dispatcher [employer] EDMS Cesar Snider RN RN bp Kristy Garnett, RN RN kc6 Ary Stoddard PA-C PA-C sb4 Leigh Arambula PAS PAS ts1
[2023-02-17] MEDS ORDERED: HYDROCODONE/APAP 7.5/325 MG TAB ONE (17:42)
[2023-02-17 17:56] VITALS: TEMP 98
[2023-02-17 17:57] VITALS: O2SAT 100
[2023-02-17 17:59] VITALS: BP 158/90
--- NOTE | 2023-02-18 13:57 | EKG ---
Test Date: 2023-02-17 Test Time: 14:58:22 [employer] Supervisor: GENI MEASUREMENT RESULTS: Intervals: Rate: 56 NE: 188 QRSD: 102 QT: 430 QTc: 414 Elrod: P: 58 NE: 188 QRS: 43 T: 73 INTERPRETIVE STATEMENTS: Sinus bradycardia Otherwise normal ECG Compared to ECG 02/19/2017 04:15:23 Sinus rhythm no longer present Electronically Signed On 02-18-23 13:56:09 CDT by Jorge Savage
== END 2023-02-17 17:42 | disposition home or self-care (01) ==
LOC: ER 14:30
DX: S46.112A Strain of muscle, fascia and tendon of long head of biceps, left arm, initial encounter (principal); R07.89 Other chest pain; I10 Essential (primary) hypertension; I25.2 Old myocardial infarction; E78.00 Pure hypercholesterolemia, unspecified; Z95.1 Presence of aortocoronary bypass graft; Z79.82 Long term (current) use of aspirin
CPT/HCPCS: 93005; 85025; 80048; 36415; 83735; 85610; 85379; 80076; 84484; 83880; 71045; 93971; 99284; J7614; J2543; J7644; J7030

== ENCOUNTER 2023-11-07 14:57 | Observation (INO) | payer OTHER ==
--- OUTSIDE RECORDS SUMMARY | 2023-11-07 15:00 | XMS REPORT | Clinical Summary ---
Author Name Unknown Organization [facility] Address [address] [place] [address] Care Team Providers Care Freelance Programmer/App Developer Name Role Phone Skyler Tsai MD Unavailable Jocelin Cook MD Primary Care Provider [phone] Allergies No known active allergies Medications Medication Sig Dispensed Refills Start Date End Date Status valsartan (DIOVAN) 160 mg tablet BID 3 07/28/2016 Active rosuvastatin (CRESTOR) 20 mg tablet TAKE 1 TABLET BY MOUTH EVERY DAY 12 07/18/2016 Active ezetimibe (ZETIA) 10 mg tablet TAKE 1 TABLET BY MOUTH EVERY DAY 12 05/03/2017 Active metoprolol tartrate (LOPRESSOR) 50 mg tablet Take 1 tablet (50 mg) by mouth twice daily. 0 Active aspirin 81 mg EC tablet Take 1 tablet (81 mg) by mouth. 0 Active hydroCHLOROthiazi de (HYDRODIURIL) 25 mg tablet Take 1 tablet (25 mg) by mouth daily. 0 Active coenzyme Q10 200 mg capsule Take 1 tablet by mouth. 0 Active cholecalciferol, vitamin D3, 1,000 units tablet Take 1 tablet (1,000 Units) by mouth daily. 0 Active amLODIPine (NORVASC) 10 mg tablet TAKE 1 TABLET BY ORAL ROUTE EVERY DAY 3 09/29/2017 Active fluticasone propionate (FLONASE) 50 mcg/spray nasal spray SPRAY 1 SPRAY INTO EACH NOSTRIL TWICE A DAY 0 03/01/2019 Active diazePAM (Valium) 5 mg tabletIndications :Claustrophobia Take Two Tablets (10 mg total) 30 Minutes Before MRI. 2 tablet 0 11/21/2020 Active famotidine (PEPCID) 20 mg tablet Take 1 tablet (20 mg) by mouth daily. 0 Active cyclobenzaprine (FLEXERIL) 10 mg tablet TAKE 1 TABLET BY ORAL ROUTE EVERY BEDTIME 12 04/28/2017 04/21/2023 Discontinued( Not Applicable) pantoprazole (PROTONIX) 40 mg EC tablet Take 40 mg by mouth. 0 03/07/2019 04/21/2023 Discontinued( Not Applicable) famotidine (PEPCID) 40 mg tablet Take 1 tablet (40 mg) by mouth daily. At bed time. 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 Thyroid nodule Follicular neoplasm of thyroid Pituitary microadenoma Hyperprolactinemia Encounters Date Type Department Care Team Description 04/26/[address] Imaging [address] [facility], 7th [place] [address] Carmen Moe MD 04/21/2023 2:30 PM CDT Follow-Up Endocrine Center [address] [place] [address], 6th [place] [address] Jocelin Cook MD Pituitary microadenoma (Primary Dx); Thyroid nodule 04/21/2023 1:15 PM CDT Ancillary Procedure Neuro-Interventiona l Ultrasound [address] [facility], 6th [place] [address] Savannah Zhu PA Thyroid nodule 04/21/2023 11:15 AM CDT Ancillary Procedure MRI Outpatient Center [address] [facility], 3rd [place] [address] Savannah Zhu PA Pituitary microadenoma 04/21/2023 8:00 AM CDT - 04/21/2023 11:59 PM CDT Hospital Encounter Diagnostic Laboratory Center [address] [facility] [place] [address] Savannah Zhu PA Pituitary microadenoma; Thyroid nodule Discharge Disposition: Home 04/21/2023 Travel after 11/07/2022 Surgical History Surgery Date Site/Laterality Comments COLONOSCOPY TOTAL HIP ARTHROPLASTY Right CORONARY ARTERY BYPASS GRAFT 07/04/2006 - 07/03/2007 CARPAL TUNNEL RELEASE TONSILLECTOMY NECK SURGERY for torticollis OTHER SURGICAL HISTORY botox for torticollis OTHER SURGICAL HISTORY facial repair after industrial accident which makes face seem asymmetrical Medical History Medical History Date Comments Coronary arteriosclerosis Hypertension Hyperlipidemia Impaired fasting glucose Osteoarthritis Allergic rhinitis not current ough Torticollis Myocardial infarction 01/26/2007 Quadruple bypass Hepatitis 1976 Gastric reflux resolved Presence of other specified device Hip replacement, pins - ankles Herpes zoster Thyroid nodule Follicular neoplasm of thyroid Personal history of colon polyp Nephrolithiasis on CT 02/17/2017 Diverticulosis of colon (wit hout mention of hemorrhage) on CT 02/17/2017 Pituitary microadenoma Family History Medical History Relation Name Comments Leukemia Brother Isaías Addison hairy cell leukemia Bone cancer Father Dilshad BoboArron Addison, Sr. Colon cancer Father Dilshad Dangelo Cyn, Sr. Diabetes Father Dilshad BoboArron Addison, Sr. Lung cancer Father Dilshad Antolin Addison, Sr. Hypertension Mother Mee Addison Thyroid cancer Neg Hx Thyroid disease Neg Hx Relation Name Status Comments Brother Isaías Addison Father iDlshad Addison, Sr. Mother Mee Addison Social History Tobacco Use Types Packs/Day Years Used Date Smoking Tobacco: Former Cigarettes 1 10 0 1975 - 2005 Smokeless Tobacco: Never Alcohol Use Standard Drinks/Week Comments Yes 0 (1 standard drink = 0.6 oz pur e alcohol) Occasional Sex and Gender Information Value Date Recorded Sex Assigned at Male 12/24/2020 12:30 PM CDT Gender Identity Male 12/24/2020 12:30 PM CDT Sexual Orientation Straight 12/24/2020 12 :30 PM CDT Job Start Date Occupation Industry Not on file Not on file Not on file Obstetrics History Last Filed Vital Signs Vital Sign Reading Time Taken Comments Blood Pressure 112/62 04/21/2023 1:45 PM CDT Pulse 56 04/21/2023 1:45 PM CDT Temperature 36.7 C (98.1 F) 04/21/2023 2:01 PM CD T Respiratory Rate 16 04/21/2023 1:45 PM CDT Oxygen Saturation 95% 04/21/2023 1:45 PM CDT Inhaled Oxygen Concentration - - Weight 109.1 kg (240 lb 8.4 oz) 023 10:52 AM CDT Height - - Body Mass Index 31.71 05/17/2017 3:19 PM 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 Plan of Treatment Upcoming Encounters Date Type Department Care Team Description 05/03/2024 7:30 AM CDT Appointment Diagnostic Laboratory Center [address] [place] [address], [facility] [place] [address] Jocelin Cook MD [address] [place] [address] 05/03/2024 8:15 AM CDT Ancillary Procedure Radiology Outpatient Center [address] [place] [address] Jocelin Cook MD [address] [place] [address] 05/03/2024 1:15 PM CDT Ancillary Procedure Neuro-Interventional Ultrasound [address] [facility], 6th [place] [address] Jocelin Cook MD [facility] [place] [address] 05/03/2024 2:30 PM CDT Follow-Up Endocrine Center [address] [place] [address], 6th [place] [address] Jocelin Cook MD [facility] [place] [address] Health Maintenance Due Date Last Done Comments COVID-19 Vaccine (#1) 02/11/1956 Influenza Vaccine 03/04/2024 Medical Devices Implanted Type Area Otr [employer]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 Device Identifier Shelf Expiration Date Model / Serial / Lot Hip Prosthesis Pins In Ankle Procedures Procedure Name Priority Date/Time Associated Diagnosis Comments US HEAD NECK SOFT TISSUE Routine 023 1:41 PM CDT Thyroid nodule MRI PITUITARY W WO CONTRAST Routine 04/21/2023 12:41 PM CDT Pituitary microadenoma VITAMIN D 25 HYDROXY LEVEL Routine 04/21 8:38 AM CDT Pituitary microadenoma THYROID STIMULATING HORMONE Routine 04/21/2023 8:38 AM CDT Pituitary microadenoma Thyroid nodule TESTOSTERONE LEVEL Routine 04/21/2023 8: 38 AM CDT Pituitary microadenoma ELECTROLYTE PANEL Routine 04/21/2023 8:3 8 AM CDT Pituitary microadenoma PROLACTIN Routine 04/21/2023 8:38 AM CDT Pituitary microadenoma INSULIN-LIKE GROWTH FACTOR 1 Routine 04/21/2023 8:38 AM CDT Pituitary microadenoma LUTEINIZING HORMONE Routine 04/21/2023 8 :38 AM CDT Pituitary microadenoma FOLLICLE STIMULATING HORMONE LEVEL Routine 04/21/2023 8:38 AM CDT Pituitary microadenoma FREE THYROXINE Routine 04/21/2023 8:38 AM CDT Pituitary microadenoma Thyroid nodule CORTISOL, TOTAL Routine 04/21/2023 8:38 AM CDT Pituitary microadenoma ADRENOCORTICOTROPIC HORMONE Routine 04/21/2023 8:31 AM CDT Pituitary microadenoma Thyroid nodule after 11/07/2022 Results * US Head Neck Soft Tissue (04/21/2023 1:41 PM CDT) Anatomical Region Laterality Modality Head, Neck Ultrasound 04/21/2023 1:39 PM CDT Impressions 04/21/2023 2:14 PM CDT 1. Stable subcentimeter RIGHT thyroid nodule biopsied previously as described above. 2. No new suspicious thyroid nodule. 3. No lateral neck adenopathy. ACTIONABLE ITEMS/RECOMMENDATIONS: None. Narrative 04/21/2023 2:14 PM CDT FULL RESULT: Examination: US HEAD NECK SOFT TISSUE on 04/21/2023 1:41 PM. 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 INDICATION: Mass COMPARISON: Ultrasound on 03/04/2022, 06/07/2017. PROCEDURE COMMENTS: Real-time ultrasound examination of the neck soft tissues was performed. FINDINGS: RIGHT thyroid lobe: 2.0 x 4.4 x 2.1 cm Isthmus: 0.5 cm LEFT thyroid lobe: 4.1 x 1.8 x 2.0 cm 0.6 x 0.6 x 0.5 cm hypoechoic solid RIGHT inferior thyroid nodule biopsied previously is stable compared to prior exam and shrunken in size since 2016. 1.1 x 1.5 x 1.2 cm spongiform appearing LEFT superior thyroid nodule is stable in size without new worrisome features. Lymph nodes: Right lateral compartment: No suspicious appearing lymph nodes. Left lateral compartment: No suspicious appearing lymph nodes. Procedure Note De Caldera MD - 04/21/2023 FULL RESULT: Examination: US HEAD NECK SOFT TISSUE on 04/21/2023 1:41 PM. 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 INDICATION: Mass COMPARISON: Ultrasound on 03/04/2022, 06/07/2017. PROCEDURE COMMENTS: Real-time ultrasound examination of the neck softtissues was performed. FINDINGS: RIGHT thyroid lobe: 2.0 x 4.4 x 2.1 cm Isthmus: 0.5 cm LEFT thyroid lobe: 4.1 x 1.8 x 2.0 cm 0.6 x 0.6 x 0.5 cm hypoechoic solid RIGHT inferior thyroid nodule biopsiedpreviously is stable compared to prior exam and shrunken in size [id number]. 1.1 x 1.5 x 1.2 cm spongiform appearing LEFT superior thyroid nodule isstable in size without new worrisome features. Lymph nodes: Right lateral compartment: No suspicious appearing lymph nodes. Left lateral compartment: No suspicious appearing lymph nodes. IMPRESSION: 1. Stable subcentimeter RIGHT thyroid nodule biopsied previously asdescribed above. 2. No new suspicious thyroid nodule. 3. No lateral neck adenopathy. ACTIONABLE ITEMS/RECOMMENDATIONS: None. Savannah FLORES IMG US ORDERABLES * MRI Pituitary with and without Contrast (04/21/2023 12:41 PM CDT) Anatomical Region Laterality Modality Head Magnetic Resonan ce 04/21/2023 4:02 PM CDT Impressions 04/21/2023 4:11 PM CDT Stable subcentimeter cystic lesion in the right sella. ACTIONABLE ITEMS/RECOMMENDATIONS: None. Narrative 04/21/2023 4:11 PM CDT FULL RESULT: Examination: MRI PITUITARY W WO CONTRAST on 04/21/2023 12:41 PM. CLINICAL HISTORY: Pituitary microadenoma INDICATION: Other, Presence of suspected mass or lesion, adenopathy, metastases/ recurrence COMPARISON: 03/04/2022 and 12/12/2020. TECHNIQUE: Pre and postcontrast MR images of the pituitary gland and sella were obtained. FINDINGS: Sella: A stable cystic lesion is present in the right sella. The lesion is low T1 signal intensity, high T2 signal intensity with a thin rim of contrast enhancement along the superior margin. The superior margin is convex superiorly. No change in size since at least 12/12/2020 measuring 6 mm craniocaudal by 8 mm transverse. The optic chiasm is not compressed. The infundibulum is minimally displaced to the left. The posterior pituitary bright spot is visualized. The cavernous sinuses appear normal. Brain: The visualized brain is unremarkable. Procedure Note Chioma Mallory MD - 04/21/2023 FULL RESULT: Examination: MRI PITUITARY W WO CONTRAST on 04/21/2023 12:41 PM. CLINICAL HISTORY: Pituitary microadenoma INDICATION: Other, Presence of suspected mass or lesion, adenopathy,metastases/ recurrence COMPARISON: 03/04/2022 and 12/12/2020. TECHNIQUE: Pre and postcontrast MR images of the pituitary gland and sellawere obtained. FINDINGS: Sella: A stable cystic lesion is present in the right sella. The lesion is low [id number] intensity, high T2 signal intensity with a thin rim of contrastenhancement along the superior margin. The superior margin is convexsuperiorly. No change in size since at least 12/12/2020 measuring 6 mmcraniocaudal by 8 mm transverse. The optic chiasm is not compressed. Theinfundibulum is minimally displaced to the left. The posterior pituitary bright spot is visualized. The cavernous sinuses appear normal. Brain: The visualized brain is unremarkable. IMPRESSION: Stable subcentimeter cystic lesion in the right sella. ACTIONABLE ITEMS/RECOMMENDATIONS: None. [facility] FLORES [facility] [place] * Insulin-Like Growth Factor I (04/21/2023 8:38 AM CDT) Pathologist [facility] Insulin-Like Growth Factor 1-Laurel 147 32 - 209 ng/mL [facility] IGF Z-score 1.04 -2.0 - 2.[address] [facility] Comment: ADDITIONAL INFORMATION This test was developed and its performance characteristics determined by [facility] in a manner consistent with CLIA requirements. This test has not been cleared or approved by the U.S. Food and Drug Administration. Test Performed by: [facility] - [address] [address] Intelligence Group Supervisor: Uri Bautista M.D. Ph.D.; CLIA# [id number] Blood 04/21/2023 8:38 AM CDT 04/21/2023 9:03 AM CDT Savannah FLORES LAB BLOOD ORDERABLES [facility] Unless otherwise noted, all lab tests performed by: Division of Pathology and Laboratory Medicine [address] [id number] * Vitamin D 25OH (04/21/2023 8:38 AM CDT) Pathologist [facility] Vitamin D 25 OH 66 30 - 100 ng/mL [facility] Comment: Reference Range: Deficiency: <=20 ng/mL Insufficiency: 21-29 ng/mL Sufficiency: 30-100 ng/mL Potential toxicity: >100 ng/mL Blood 04/21/2023 8:38 AM CDT 04/21/2023 9:01 AM CDT Savannah FLORES LAB BLOOD ORDERABLES [facility] Unless otherwise noted, all lab tests performed by: Division of Pathology and Laboratory Medicine [address] [id number] * (ABNORMAL) Prolactin (04/21/2023 8:38 AM CDT) [facility] Prolactin 16.6(H) 4.0 - 15.2 ng/mL [facility] Comment:Results greater than 4700.0 ng/mL may not be reliable due to matrix effect with extended dilution as it exceeds the line assembler aircraft s recommended limit. Caution should be exercised when interpreting such values and done in conjunction with clinical context. Blood 04/21/2023 8:38 AM CDT 04/21/2023 9:01 AM CDT Savannah FLORES LAB BLOOD ORDERABLES Performing Organization Address City/[facility] Co de Phone Number [facility] Unless otherwise noted, all lab tests performed by: Division of Pathology and Laboratory Medicine [address] [place] [id number] * (ABNORMAL) TSH (04/21/2023 8:38 AM CDT) [facility] TSH 4.29(H) 0.27 - 4.20 mcunit/mL [facility] Comment: Note: New Methodology and Reference Range change effective 10/20/2017 at 1400 Testing Performed at [facility] Lab Clam Grower [facility], [facility], [address], [place] [address] Blood 04/21/2023 8:38 AM CDT 04/21/2023 8:42 AM CDT Savannah FLORES LAB BLOOD ORDERABLES [facility] [address] [place] [address]. [address] [place] [address] * Free T4 (04/21/2023 8:38 AM CDT) [facility] T4 Free 1.24 0.93 - 1.70 ng/dL [facility] Comment:Testing Performed at [facility] Lab [employer] [facility], [address] [place] [address], [address], [place] [address] Blood 04/21/2023 8:38 AM CDT 04/21/2023 8:42 AM CDT Savannah FLORES LAB BLOOD ORDERABLES Performing Organization Address City/[facility] Co de Phone Number [address] [place] [address] * Testosterone Level (04/21/2023 8:38 AM CDT) [facility] Testoster Tot 414 193 - 740 ng/dL [facility] Comment: Reference Ranges: Male: Age 20 - 49 249 - 836 Age >=50 193 - 740 Female: Age 20 - 49 8 - 48 Age >=50 3 - 41 Blood 04/21/2023 8:38 AM CDT 04/21/2023 9:01 AM CDT Savannah FLORES LAB BLOOD ORDERABLES [facility] Unless otherwise noted, all lab tests performed by: Division of Pathology and Laboratory Medicine [address] [place] [id number] * (ABNORMAL) LH (04/21/2023 8:38 AM CDT) [facility] LH 11.2(H) 1.7 - 8.6 mIU/mL [facility] Comment: Female Luteinizing Hormone Reference Ranges: LOW HIGH Follicular 2.4 12.6 Ovulation 14.0 95.6 Luteal 1.0 11.4 Postmenopause 7.7 58.5 Blood 04/21/2023 8:38 AM CDT 04/21/2023 9:01 AM CDT Savannah FLORES LAB BLOOD ORDERABLES [facility] Unless otherwise noted, all lab tests performed by: Division of Pathology and Laboratory Medicine [address] [place] [phone] * (ABNORMAL) FSH Level (04/21/2023 8:38 AM CDT) FSH 13.5(H) 1.5 - 12.4 mIU/mL [facility] Comment: Female Follicle Stimulating Hormone Reference Ranges: LOW HIGH Follicular 3.5 12.5 Ovulation 4.7 21.5 Luteal 1.7 7.7 Postmenopause 25.8 134.8 Blood 04/21/2023 8:38 AM CDT 04/21/2023 9:01 AM CDT Savannah FLORES LAB BLOOD ORDERABLES Performing Organization Address City/[facility] Co de Phone Number [facility] Unless otherwise noted, all lab tests performed by: Division of Pathology and Laboratory Medicine [address] [place] [id number] * Cortisol, Total (04/21/2023 8:38 AM CDT) Cortisol, Total 14.67 4.80 - 19.50 mcg/dL [facility] Comment: Cortisol reference intervals are established for the morning hours from 6-10 am and afternoon hours 4-8 pm. Due to circadian rhythm of cortisol levels in serum and plasma, the sample collection time must be noted. Caution should be exercised when interpreting such values and done in conjunction with clinical context. Serum Cortisol Reference Ranges: Morning (6-10am) (4.8 - 19.5) Afternoon (4-8pm) (2.5 - 11.9) Testing Performed at [facility] [employer] [facility], [address] [facility], [address], [place] [address] Blood 04/21/2023 8:38 AM CDT 04/21/2023 8:42 AM CDT Savannah FLORES LAB BLOOD ORDERABLES Performing Organization Address [facility]/ZIP Co de Phone Number [facility] [address] [facility]. [address] [place] [address] * Electrolyte Panel (04/21/2023 8:38 AM CDT) Sodium Lvl 139 136 - 145 mEq/L [facility] Comment:Testing Performed at [facility] Lab [employer] [facility], [address] [facility], [address], [place] [address] Potassium Lvl 4.0 3.5 - 5.1 mEq/L [facility] Comment:Testing Performed at [facility] Lab [employer] [facility], [address] [facility], [address], [place] [address] Chloride 101 98 - 107 mEq/L [facility] Comment:Testing Performed at [facility] Lab [employer] [facility], [address] [facility], [address], [place] [address] CO2 27 22 - 29 mEq/L [facility] Comment:Testing Performed at [facility] Lab [employer] [facility], [address] [facility], [address], [place] [address] Anion Gap 11 4 - 14 mEq/L [facility] Comment:Testing Performed at [facility] Lab [employer] [facility], [address] [facility], [address], [place] [address] Blood 04/21/2023 8:38 AM CDT 04/21/2023 8:42 AM CDT Savannah FLORES LAB BLOOD ORDERABLES Performing Organization Address City/[facility]/ZIP Co de Phone Number [facility] [address] [facility]. [address] [place] [address] * ACTH (04/21/2023 8:31 AM CDT) Pathologist [facility] ACTH 32 7 - 63 pg/mL [facility] Comment: Results greater than 1826 pg/mL may not be reliable due to matrix effect with extended dilution as it exceeds the line assembler aircraft's recommended limit. ACTH reference intervals are established for the morning hours from 7-10 am. Due to the circadian rhythm of ACTH levels in plasma, the sample collection time must be noted. Caution should be exercised when interpreting such values and done in conjunction with clinical context. Blood 04/21/2023 8:31 AM CDT 04/21/2023 10:[address] [facility] - 04/21/2023 10:46 AM CDT This lab cannot be scheduled at the following locations due to collection/proccessing restrictions: [place] - RE[facility] DIAG LAB CTR [place] - REG[facility] DIAG LAB CTR [facility] DIAG LAB CTR [facility] - [facility] DAIG [facility] CTR DI [facility] DI DIAG LAB CTR [facility] Savannah FLORES LAB BLOOD ORDERABLES [facility] Unless otherwise noted, all lab tests performed by: Division of Pathology and Laboratory Medicine [facility] [place] [address] after 11/07/2022 Care Teams Freelance Programmer/App Developer Relationship Specialty Start Date End Date Skyler Tsai MD [address] [place] [address] [phone] PCP - External Referring Internal Medicine 04/07/17 Jocelin Cook MD [address] [place], [place] [id number] PCP - General Endocrinology 05/04/21
[2023-11-07] MEDS ORDERED: ONDANSETRON 4 MG/2 ML VIAL ONE (15:37)
[2023-11-07] MEDS ORDERED: NA CHLORIDE 0.9% 1,000 ML ONE (15:38)
[2023-11-07] MEDS ORDERED: MORPHINE 4 MG/ML SYR ONE (15:38)
[2023-11-07 16:17] LABS: Absolute Eosinophils 0.1 K/uL (0-0.5); Absolute Lymphocytes (CBC) 2.6 K/uL (0.7-4.9); Absolute Monocytes 0.9 K/uL (0.1-1.3); Absolute Neutrophil 5.4 K/uL (1.8-8.0); Basophils % 0.3 % (0-1.3); Eosinophils % 0.6 % (0-4.4); Hematocrit 52.4 % (39.6-49.0); Lymphocytes % 28.9 % (15.3-44.8); MCH 33.1 pg (27.0-35.0); MCHC 34.3 g/dL (32.0-36.0); MCV 96.5 fL (80-100); MPV 8.2 fL (7.6-11.3); Monocytes % 10.3 % (3.3-12.3); Neutrophils % 59.9 % (41.7-73.7); Nucleated Red Blood Cells % 0.1 % (0-0); Platelets 168 thou/uL (152-406); RBC Red Blood Cell Count 5.43 M/uL (4.33-5.43); Red Cell Distribution Width 13.5 % (12.1-15.2)
[2023-11-07] MEDS ORDERED: FENTANYL CITR 100 MCG/2 ML ONE (16:17)
[2023-11-07 16:34] LABS: Albumin/Globulin Ratio 1.3 (1.1-1.8); Anion Gap 8.2 mEq/L (5.0-15.0); Bilirubin Total 0.9 mg/dL (0.2-1.0); Globulin 3.1 g/dL (2.3-3.5); Potassium 3.2 mEq/L (3.5-5.1); Protein, Total 7.1 g/dL (6.4-8.2)
[2023-11-07 17:05] LABS: Specific Gravity 1.008 (1.005-1.030); Sqamous Epithelial None Seen /HPF (None Seen); Urine Bacteria None Seen /HPF (<20); Urine Bilirubin NEGATIVE (Negative); Urine Blood Trace (Negative); Urine Clarity Clear (Clear); Urine Color Colorless (Yellow); Urine Culture Reflex Order NOT NEEDED; Urine Glucose 4+ (Over) (Negative); Urine Ketones 1+ (Negative); Urine Microscopic Reflex YN ORDER UMIC; Urine Nitrite NEGATIVE (Negative); Urine Protein NEGATIVE (Negative); Urine RBC <5 /HPF (None Seen); Urine Urobilinogen Normal (Normal); Urine WBC <5 /HPF (<5); Urine pH 6.5 (5.0-7.0)
[2023-11-07] MEDS ORDERED: HYDROMORPHONE HCL 1 MG/ML INJ ONE (17:05)
--- NOTE | 2023-11-07 17:05 | RAD REPORT ---
EXAM DESCRIPTION: CTAbdomen Pelvis W Contrast - 11/07/2023 4:53 pm CLINICAL HISTORY: Abdominal pain. Abd pain;Flank pain COMPARISON: Abdomen Pelvis W Contrast dated 02/17/2017 TECHNIQUE: Biphasic CT imaging of the abdomen and pelvis was performed with 100 ml non-ionic IV cont rast. All CT scans are performed using dose optimization technique as appropriate and may include automated exposure control or mA/KV adjustment according to patient size. FINDINGS: The lung bases are clear. The liver, spleen, pancreas, adrenal glands are within normal limits. Bilateral nephrolithiasis. Mild right hydronephrosis caused by a 7 mm stone distal right ureter. No bowel obstruction, free air, free fluid or abscess. Sigmoid diverticulosis coli without diverticul itis. The appendix is not identified as a discrete structure, however, no secondary findings of appen dicitis are identified. No evidence of significant lymphadenopathy. No suspicious bony findings. IMPRESSION: Right distal ureter stone measuring 7 mm causing mild right hydronephrosis. Bilateral nephrolithiasis.
[2023-11-07] MEDS ORDERED: TAMSULOSIN 0.4 MG SR CAP ONE (17:16)
[2023-11-07] MEDS ORDERED: MAGNESIUM SULFATE 1 gm IVPB 1 GM/100 ML BAG IV ONE (17:17)
[2023-11-07] MEDS ORDERED: KETOROLAC 30 MG/ML INJ ONE (17:17)
--- NOTE | 2023-11-07 17:48 | EDPHYS ---
Physician Documentation [facility] Name: Nain Addison Age: 68 yrs Sex: Male : 1955 Arrival Date: 11/07/2023 Time: 14:57 Bed 5 Private MD: ED Physician Zainab Sinclair HPI: 11/06 15:21 This 68 yrs old Male presents to ER via Ambulatory with complaints of Abdominal Pain. sb4 15:21 The patient presents with abdominal pain right lower quadrant. Onset: The sb4 symptoms/episode began/occurred yesterday. The symptoms radiate to the right flank. Associated signs and symptoms: none. The patient has not experienced similar symptoms in the past. The patient has not recently seen a physician. RLQ pain since yesterday, radiates to right flank. denies n/v/d/f. states he was diagnosed with kidney stones a few years ago and told he would likely need surgical intervention but has not had any issues with them since. Historical: - Allergies: 15:05 No Known Allergies; as6 - PMHx: 15:05 GERD; High Cholesterol; Hypertension; Myocardial infarction; as6 - PSHx: 15:05 open heart; hip (Myocardial infarction); as6 - Immunization history:: Adult Immunizations up to date. - Infectious Disease History:: Denies. - Social history:: Smoking status: Patient reports the use of cigarette tobacco products, denies chronic smoking, but will smoke occasionally. ROS: 15:21 Constitutional: Negative for fever, chills, and weight loss, sb4 15:21 Abdomen/GI: Positive for abdominal pain, 15:21 Back: Positive for flank pain, on the right, 15:21 All other systems are negative, Exam: 15:21 Constitutional: This is a well developed, well nourished patient who is awake, alert, sb4 and in no acute distress. Head/Face: Normocephalic, atraumatic. Eyes: Extra-ocular motions intact. Periorbital areas with no swelling, redness, or edema. ENT: Mucous membranes moist. Cardiovascular: Regular rate and rhythm with a normal S1 and S2. Respiratory: Lungs have equal breath sounds bilaterally, clear to auscultation and percussion. No rales, rhonchi or wheezes noted. No increased work of breathing, no retractions or nasal flaring. Skin: Warm, dry with normal turgor. Normal color with no rashes, no lesions, and no evidence of cellulitis. MS/ Extremity: Pulses equal, no cyanosis. Neurovascular intact. Full, normal range of motion. 15:21 Abdomen/GI: Inspection: abdomen appears normal, Bowel sounds: normal, Palpation: soft, mild abdominal tenderness, in the right lower quadrant, 15:21 Back: CVA tenderness, is noted on the right, Vital Signs: 15:04 BP 154 / 93; Pulse 85; Resp 18 S; Temp 98.2(O); Pulse Ox 94% on R/A; Weight 99.79 kg as6 (R); Height 6 ft. 1 in. (R); Pain 9/10; 16:40 BP 167 / 90; Pulse 77; Resp 18; Pulse Ox 98% on R/A; rs5 17:51 BP 165 / 94; Pulse 80; Resp 18; Pulse Ox 99% on R/A; rs5 15:04 Body Mass Index 29.03 (99.79 kg, 185.42 cm) as6 15:04 Pain Scale: Adult as6 MDM: 15:13 Patient medically screened. sb4 17:39 Data reviewed: vital signs, nurses notes, lab test result(s), radiologic studies, and sb4 as a result, I will admit patient. Consideration of Admission/Observation Patient was admitted/placed on observation. 05 15:17 Order name: CBC with Diff; Complete Time: 16:26 sb4 11/06 15:17 Order name: CMP; Complete Time: 16:35 sb4 11/06 15:17 Order name: Lipase; Complete Time: 16:35 sb4 11/06 15:17 Order name: Urinalysis w/ reflexes; Complete Time: 17:06 sb4 11/06 15:17 Order name: CT Abd/Pelvis - IV Contrast Only; Complete Time: 17:08 sb4 11/06 15:17 Order name: IV Saline Lock; Complete Time: 15:36 sb4 11/06 15:17 Order name: Labs collected and sent; Complete Time: 15:36 sb4 Administered Medications: 15:40 Drug: NS 0.9% IV 1000 ml IV at 1 bolus Per protocol; 1000 mL bolus Route: IV; Rate: 1 rs5 bolus; Site: right antecubital; 16:00 Follow up: Response: No adverse reaction rs5 15:40 Drug: Ondansetron IVP 4 mg IVP once; over 2 minutes Route: IVP; Site: right antecubital;rs5 16:00 Follow up: Response: No adverse reaction rs5 15:40 Drug: morphine IVP or IV 4 mg IVP once over 4 mins Route: IVP; Infused Over: 4 mins; rs5 Site: right antecubital; 16:00 Follow up: Response: No adverse reaction rs5 16:20 Drug: fentaNYL (PF) IVP 50 mcg IVP once Route: IVP; Site: right antecubital; rs5 16:40 Follow up: Response: No adverse reaction rs5 17:13 Drug: HYDROmorphone IVP 1 mg IVP once Route: IVP; Site: right antecubital; rs5 17:30 Follow up: Response: No adverse reaction rs5 17:15 Drug: Ketorolac IVP 15 mg IVP once Route: IVP; Site: right femoral; rs5 17:30 Follow up: Response: No adverse reaction; Pain is decreased rs5 17:26 Drug: Flomax PO 0.4 mg PO once Route: PO; rs5 17:52 Follow up: Response: No adverse reaction rs5 17:26 Drug: Magnesium Sulfate IVPB 1 grams IVPB once over 1 hrs Route: IVPB; Infused Over: 1 rs5 hrs; Site: right antecubital; 17:52 Follow up: Response: No adverse reaction rs5 Disposition Summary: 11/07/23 17:47 Hospitalization Ordered Notes: Hospitalization Status: Observation sb4 Provider: Aakash Tsai Location: Telemetry/[facility] (observation) sb4 Condition: Fair sb4 Problem: new sb4 Symptoms: are unchanged sb4 Bed/Room Type: Standard sb4 Room Assignment: 208(11/07/23 17:59) bd Diagnosis - 7mm ureterolithiasis with hydronephrosis, right sb4 Forms: - Medication Reconciliation Form sb4 - SBAR form sb4 - Leadership Thank You Letter sb4 Signatures: Dispatcher [employer] Desiree Jennings Ashby, RN RN as6 Ary Stoddard PA-C PAVíctor sb4 Kumar, Manoj, RN RN rs5 Corrections: (The following items were deleted from the chart) 15:18 15:18 CBC+H.LAB.BRZ ordered. EDMS EDMS 15:18 15:18 COMPREHENSIVE METABOLIC PANEL+C.LAB.BRZ ordered. EDMS EDMS 15:18 15:18 LIPASE+C.LAB.BRZ ordered. EDMS EDMS 15:18 15:18 Urinalysis+U.LAB.BRZ ordered. EDMS EDMS 17:59 17:47 sb4 bd
--- NOTE | 2023-11-07 17:48 | ER ---
Nurse's Notes [facility] Name: Nain Addison Age: 68 yrs Sex: Male : 1955 Arrival Date: 11/07/2023 Time: 14:57 Bed 5 Private MD: Diagnosis: 7mm ureterolithiasis with hydronephrosis, right Presentation: 11/06 15:06 Chief complaint: Patient states: RLQ pain. Coronavirus screen: At this time, the client as6 does not indicate any symptoms associated with coronavirus-19. Ebola Screen: No symptoms or risks identified at this time. Initial Sepsis Screen: Does the patient meet any 2 criteria? No. Patient's initial sepsis screen is negative. Does the patient have a suspected source of infection? No. Patient's initial sepsis screen is negative. Risk Assessment: Do you want to hurt yourself or someone else? Patient reports no desire to harm self or others. Onset of symptoms was November 06, 2023. 15:06 Acuity: MARIA A 3 as6 15:06 Method Of Arrival: Ambulatory as6 Triage Assessment: 15:06 General: Appears in no apparent distress. Behavior is calm, cooperative. Pain: as6 Complains of pain in right lower quadrant. Historical: - Allergies: 15:05 No Known Allergies; as6 - PMHx: 15:05 GERD; High Cholesterol; Hypertension; Myocardial infarction; as6 - PSHx: 15:05 open heart; hip (Myocardial infarction); as6 - Immunization history:: Adult Immunizations up to date. - Infectious Disease History:: Denies. - Social history:: Smoking status: Patient reports the use of cigarette tobacco products, denies chronic smoking, but will smoke occasionally. Screenin:15 [facility] ED Fall Risk Assessment (Adult) History of falling in the last 3 months, rs5 including since admission No falls in past 3 months (0 pts) Confusion or Disorientation No (0 pts) Intoxicated or Sedated No (0 pts) Impaired Gait No (0 pts) Mobility Assist Device Used No (0 pt) Altered Elimination No (0 pt) Score/Fall Risk Level 0 - 2 = Low Risk Oriented to surroundings, Maintained a safe environment. Abuse screen: Denies threats or abuse. Nutritional screening: No deficits noted. Tuberculosis screening: No symptoms or risk factors identified. Assessment: 15:13 General: Appears in no apparent distress. uncomfortable, Behavior is calm, cooperative. rs5 Pain: Complains of pain in right lower quadrant Pain currently is 8 out of 10 on a pain scale. Quality of pain is described as aching, Is continuous. Neuro: Level of Consciousness is awake, alert, obeys commands, Oriented to person, place, time, situation. Cardiovascular: Patient's skin is warm and dry. Rhythm is regular. Respiratory: Respiratory effort is even, unlabored, Respiratory pattern is regular, symmetrical. GI: Abdomen is round non-distended, Bowel sounds present X 4 quads. Abd is soft and non tender X 4 quads. : No signs and/or symptoms were reported regarding the genitourinary system. EENT: No signs and/or symptoms were reported regarding the EENT system. Derm: Skin is intact, Skin is pink, warm \T\ dry. Musculoskeletal: Range of motion: intact in all extremities. 16:00 Reassessment: Patient and/or family updated on plan of care and expected duration. Pain rs5 level reassessed. Patient is alert, oriented x 3, equal unlabored respirations, skin warm/dry/pink. Patient states feeling better. 16:15 Pain: Complains of pain in right lower quadrant Pain currently is 9 out of 10 on a pain rs5 scale. Quality of pain is described as aching, Is continuous. 16:16 Reassessment: Provider notified pt is experiencing pain. rs5 16:45 Reassessment: No changes from previously documented assessment. Patient is alert, rs5 oriented x 3, equal unlabored respirations, skin warm/dry/pink. Patient states feeling better. 17:08 Pain: Complains of pain in right lower quadrant Pain currently is 9 out of 10 on a pain rs5 scale. Quality of pain is described as aching, Is continuous. 17:10 Reassessment: provider notified pt is experiencing pain . rs5 17:51 Reassessment: Patient and/or family updated on plan of care and expected duration. Pain rs5 level reassessed. Patient is alert, oriented x 3, equal unlabored respirations, skin warm/dry/pink. Patient states feeling better. Vital Signs: 15:04 BP 154 / 93; Pulse 85; Resp 18 S; Temp 98.2(O); Pulse Ox 94% on R/A; Weight 99.79 kg as6 (R); Height 6 ft. 1 in. (R); Pain 9/10; 16:40 BP 167 / 90; Pulse 77; Resp 18; Pulse Ox 98% on R/A; rs5 17:51 BP 165 / 94; Pulse 80; Resp 18; Pulse Ox 99% on R/A; rs5 15:04 Body Mass Index 29.03 (99.79 kg, 185.42 cm) as6 15:04 Pain Scale: Adult as6 ED Course: 15:01 Patient arrived in ED. im 15:01 Ary Stoddard PA-C is PHCP. sb4 15:01 Zainab Sinclair MD is Attending Physician. sb4 15:05 Arm band placed on. as6 15:06 Triage completed. as6 15:15 Patient has correct armband on for positive identification. Placed in gown. Bed in low rs5 position. Call light in reach. Side rails up X2. 15:15 No provider procedures requiring assistance completed. rs5 15:35 Manoj Kumar, WILFRED is Primary Nurse. rs5 15:35 Inserted saline lock: 18 gauge in right antecubital area, using aseptic technique. rs5 Blood collected. 16:55 CT Abd/Pelvis - IV Contrast Only In Process Unspecified. EDMS 17:47 Aakash Tsai MD is Hospitalizing Provider. sb4 18:01 Patient admitted, IV remains in place. rs5 Administered Medications: 15:40 Drug: NS 0.9% IV 1000 ml IV at 1 bolus Per protocol; 1000 mL bolus Route: IV; Rate: 1 rs5 bolus; Site: right antecubital; 16:00 Follow up: Response: No adverse reaction rs5 15:40 Drug: Ondansetron IVP 4 mg IVP once; over 2 minutes Route: IVP; Site: right antecubital;rs5 16:00 Follow up: Response: No adverse reaction rs5 15:40 Drug: morphine IVP or IV 4 mg IVP once over 4 mins Route: IVP; Infused Over: 4 mins; rs5 Site: right antecubital; 16:00 Follow up: Response: No adverse reaction rs5 16:20 Drug: fentaNYL (PF) IVP 50 mcg IVP once Route: IVP; Site: right antecubital; rs5 16:40 Follow up: Response: No adverse reaction rs5 17:13 Drug: HYDROmorphone IVP 1 mg IVP once Route: IVP; Site: right antecubital; rs5 17:30 Follow up: Response: No adverse reaction rs5 17:15 Drug: Ketorolac IVP 15 mg IVP once Route: IVP; Site: right femoral; rs5 17:30 Follow up: Response: No adverse reaction; Pain is decreased rs5 17:26 Drug: Flomax PO 0.4 mg PO once Route: PO; rs5 17:52 Follow up: Response: No adverse reaction rs5 17:26 Drug: Magnesium Sulfate IVPB 1 grams IVPB once over 1 hrs Route: IVPB; Infused Over: 1 rs5 hrs; Site: right antecubital; 17:52 Follow up: Response: No adverse reaction rs5 Medication: 15:45 VIS not applicable for this client. rs5 Outcome: 17:47 Decision to Hospitalize by Provider. sb4 18:01 Patient left the ED. rs5 18:01 Admitted to Med/surg accompanied by tech, rs5 18:01 Condition: stable 18:01 Discharge instructions given to patient, family, Instructed on the need for admit, Demonstrated understanding of instructions, Signatures: Dispatcher [facility] Veronica RN RN as6 Ary Stoddard PA-C PA-C sb4 Manoj Kumar RN RN rs5 Keesha Barbosa Corrections: (The following items were deleted from the chart) 17:49 15:30 Reassessment: Patient and/or family updated on plan of care and expected rs5 duration. Pain level reassessed. Patient is alert, oriented x 3, equal unlabored respirations, skin warm/dry/pink. Patient states feeling better. rs5 17:49 15:37 Pain: Complains of pain in right lower quadrant Pain currently is 9 out of 10 on rs5 a pain scale. Quality of pain is described as aching, Is continuous, rs5 19:01 19:00 Patient left the ED. rs5 rs5
[2023-11-07] MEDS ORDERED: ONDANSETRON 4 MG/2 ML VIAL IV PRN (19:20)
[2023-11-07] MEDS ORDERED: ACETAMINOPHEN 325 MG TABLET PO PRN (19:20)
[2023-11-07 19:57] VITALS: BMI 29.0
[2023-11-07] MEDS: METOPROLOL TAR 50 MG TAB PO SCH (21:17)
[2023-11-07] MEDS: VALSARTAN 160 MG TAB PO SCH (21:17)
[2023-11-07] MEDS: NA CHLORIDE 0.9% 1,000 ML IV SCH (21:18)
[2023-11-07] MEDS: TAMSULOSIN 0.4 MG SR CAP PO SCH (21:18)
[2023-11-07] MEDS: HYDROMORPHONE HCL 1 MG/ML INJ IV PRN (21:27)
[2023-11-08 03:54] LABS: Absolute Eosinophils 0.2 K/uL (0-0.5); Absolute Lymphocytes (CBC) 2.7 K/uL (0.7-4.9); Absolute Monocytes 0.8 K/uL (0.1-1.3); Absolute Neutrophil 3.1 K/uL (1.8-8.0); Basophils % 0.5 % (0-1.3); Eosinophils % 2.3 % (0-4.4); Hematocrit 47.6 % (39.6-49.0); Hemoglobin 16.7 g/dL (13.6-17.9); Lymphocytes % 39.6 % (15.3-44.8); MCHC 35.1 g/dL (32.0-36.0); MCV 96.7 fL (80-100); MPV 8.9 fL (7.6-11.3); Monocytes % 11.3 % (3.3-12.3); Neutrophils % 46.3 % (41.7-73.7); Nucleated Red Blood Cells % 0.1 % (0-0); Platelets 158 thou/uL (152-406); RBC Red Blood Cell Count 4.92 M/uL (4.33-5.43); Red Cell Distribution Width 13.3 % (12.1-15.2)
--- NOTE | 2023-11-08 04:57 | HP ---
Date of Admission: 11/07/2023 Chief Complaint: Abdominal pain. History Of Present Illness: This is a 68-year-old very pleasant male patient, who saw Dr. Porras, u rologist, last week and has a history of kidney stone, was doing fine in his normal usual state of he alth until all of a sudden today, started to have right anterior flank pain. Pain was not improving any and he denies having any fever, chills. No blood in urine. No dysuria. The patient came into e mergency room with this complaint, was evaluated, and I was contacted requesting admission to the [facility] with bilateral kidney stone and right ureter stone causing hydroureter and hydronephrosis on th e right side. Urology consultation from Dr. Porras was requested from emergency room and the patien t was admitted to hospital under my service. After he received some medication in the emergency room , his pain has resolved and has not had any recurrence of pain. When I saw him this evening, he was very comfortable. Allergies: TO LIDOCAINE. Medications: Amlodipine 5 mg daily, aspirin 81 mg daily, cyclobenzaprine 10 mg at bedtime, Jardiance 10 mg daily in morning with breakfast, ezetimibe 10 mg daily, famotidine 40 mg daily at bedtime, flu ticasone nasal spray 1 spray each nostril 2 times a day, hydrochlorothiazide 25 mg daily, metoprolol tartrate 50 mg takes 1-1/2 tablets 2 times a day, rosuvastatin 40 mg daily, Cialis 10 mg once a week as needed, tamsulosin 0.4 mg daily, valsartan 160 mg 2 times a day, trazodone 100 mg daily at bedtime , zolpidem 10 mg daily at bedtime as needed for sleep. Review of Systems: GI: As mentioned above. Genitourinary: As mentioned above. All other systems reviewed and negative. Past Medical History: Significant for torticollis, follicular neoplasm of thyroid, being followed at [facility], type 2 diabetes mellitus, hyperlipidemia, coronary artery disease, hypertension, gastro esophageal reflux disease, benign prostatic hypertrophy, osteoarthritis at multiple sites. Past Surgical History: Coronary artery bypass surgery in 2006 and hip surgery in the past. Family History: Father had diabetes and hypertension. Mother, hypertension. Social History: Prior history of smoking, not at present time. Use of alcohol negative. Physical Examination: Vital Signs: Temperature 98.2, pulse 85, respiratory rate 18, blood pressure 154/93, oxygen saturati on 94%. His height 74 inches, weight pounds. General: Awake, alert, oriented, not in distress. HEENT: Head atraumatic, normocephalic. Conjunctivae nonerythematous. Sclerae white. Mouth, no thr ush or edema noted. Ears/Nose, no mass, lesion, discharge noted. Neck: Supple. No JVD, lymph nodes, bruit, thyromegaly noted. Lungs: Bilateral good equal air entry. Clear to auscultation. No rhonchi. No rales. Heart: Normal heart sounds, no murmur or gallop. Abdomen: Soft. Bowel sounds normal. No guarding, rigidity, distention. No hepatosplenomegaly. No bruit. The patient has very minimal tenderness in the right anterior flank region. Extremities: No leg edema. No calf tenderness. Skin: No rash, ulcer, cellulitis. Lymphatics: No lymph node enlargement in neck, supraclavicular, infraclavicular region. Neuro: No focal neurological deficit. Chest: Unremarkable. External Genitalia: Deferred. Rectal: Deferred. Laboratory Data: White count 9, hemoglobin 18, platelets 168. Sodium 134, potassium 3.2, chloride 1 01, bicarb 28, BUN 15, creatinine 0.95, glucose 90. Liver function tests unremarkable. Lipase 19. Urinalysis, 1+ ketones, 4+ glucose, otherwise negative. CAT scan of abdomen and pelvis done in emerg ency room shows bilateral kidney stones with presence of 7 mm stone in the right distal ureter result ing in mild right-sided hydronephrosis. Impression: 1.Right ureteric stone with hydronephrosis. 2.Bilateral kidney stones. 3.Coronary artery disease. 4.Hypertension. 5.Hyperlipidemia. 6.Type 2 diabetes mellitus. 7.Gastroesophageal reflux disease. Plan: We will go ahead and admit the patient to hospital for further evaluation and management of th is problem. The patient is appropriate for inpatient and [facility]. We will go ahead and continue pain medications per order. Consult urologist, Dr. Porras, for fu rther management of this kidney stone. Continue IV fluid and tamsulosin. We will consult cardiologi st for preop clearance in the event the patient needs any surgical intervention. I have advised the patient not to eat or drink after midnight in case if Dr. Porras wants to consider any intervention. For his hypertension, we will continue antihypertensive medication per order. Monitor blood pressu re and if necessary, make adjustment on medication. For hyperlipidemia, we will continue his statin therapy and ezetimibe. For his diabetes, we will manage it with sliding scale insulin. For his bill roesophageal reflux disease, we will continue his famotidine per order. Details and plan of treatmen t discussed with the patient. Total time spent 75 minutes. LIOR/MODL Voice ID: [id number]
[2023-11-08] MEDS: ASPIRIN 81 MG CHEWABLE TABLET PO SCH (07:35)
[2023-11-08] MEDS: KETOROLAC 30 MG/ML INJ IV PRN (07:43)
[2023-11-08] MEDS: D5 0.9 NS 1,000 ML IV SCH (07:43)
[2023-11-08] MEDS ORDERED: PNEUMOCOCCAL VACCINE 0.5 ML IMVAC ONE (08:00)
--- NOTE | 2023-11-08 11:29 | RAD REPORT ---
EXAM DESCRIPTION: RAD - Abdomen 1 View (KUB) - 11/08/2023 11:23 am CLINICAL HISTORY: assess visibility of nephrolithiasis +/-ureterolit Pain COMPARISON: Abdomen 1 View (KUB) dated 08/27/2020; Abdomen Pelvis W Contrast dated 11/07/2023 FINDINGS: The bowel gas pattern is non-obstructive. No evidence of free air or pneumatosis. Small ob long calcification in the right inferior pelvis presumably is the distal right ureter stone detected on recent CT. No significant bony findings. Moderate stool retained throughout the colon. IMPRESSION: Right pelvic calcification is presumably related to distal right ureter stone near the r ight UVJ.
[2023-11-08] MEDS: NA CHLORIDE 0.9% 1,000 ML ONE (13:45)
[2023-11-08] MEDS ORDERED: MIDAZOLAM HCL 2 MG/2 ML INJ ONE (14:45)
[2023-11-08] MEDS ORDERED: ONDANSETRON 4 MG/2 ML VIAL ONE (14:45)
[2023-11-08] MEDS ORDERED: FENTANYL CITR 100 MCG/2 ML ONE (14:45)
[2023-11-08] MEDS ORDERED: propofoL 200 MG/20 ML VIAL IV ONE (14:45)
[2023-11-08] MEDS ORDERED: LIDOCAINE 1% MPF 5 ML VIAL ONE (14:46)
--- NOTE | 2023-11-08 14:54 | P.CNS ---
Date of Consult: 11/08/23 Reason for Consult: Right flank pain Chief Complaint: Right flank pain History of Present Illness: 68-year-old gentleman with hypertension, DM 2, hypercholesterolemia presents with 2-day history of right flank pain associated with nausea but no vomiting. He also denies any associated fever or chills. He is known to me as an outpatient and underwent evaluation for obstructive lower urinary symptoms due to BPH considering intervention via the UroLift. Prior KUB assessment in 2021 suggested the absence of visibility of known nephrolithiasis. He presented to the emergency department yesterday and was admitted because of difficulty obtaining pain control associated with the passage of a stone. He has been dealing with a stone for about 2 days. Past medical history: As above Past surgical history: Right hip replacement, CABG x 4 - 17 years ago No known drug allergies Social history: 15-year history of smoking 1 pack/day but he quit 17 years ago and now smokes socially. Patient was recently started on TRT. Family history: Denies urologic malignancy Examination: Patient well-appearing and in no acute distress Alert, awake, oriented x 3 No dyspnea or sign of respiratory distress No cervical/supraclavicular adenopathy or thyromegaly Pulse 2+ radial and regular Abdomen soft, nontender, nondistended No lower extremity tenderness Laboratory analyses: WBC 6.8, hemoglobin 16.7, platelets 158, creatinine 1.05, UA micro plus heme/glucose 11/07/2023 CT abdomen and pelvis with contrast: Findings: Bilateral nephrolithiasis. Mild right hydronephrosis due to a 7 mm distal right ureteral calculus. 11/08/2023: I requested a KUB to assess for visibility of his nephrolithiasis and reviewed the images in detail. No stones were visible in the region of the renal shadow. Assessment and recommendation: 68-year-old gentleman with hypertension, DM 2, hypercholesterolemia with intractable right flank pain associated with right 7 x 6 mm ureterolithiasis in the setting of bilateral nephrolithiasis. -I counseled the patient that while he had a 40 to 50% likelihood of successful spontaneous passage given the distal localization of the stone in its size, he would have to be able to manage the pain for the next potentially 2 to 3 weeks while he attempted a trial of passage. Since he was ambivalent about his decision, I suggested that if the kidney stones were not perceptible on plain film and thus not amenable to shockwave lithotripsy, he would best be served with a ureteral stent placed which would serve the purpose of enabling treatment of the ureteral calculus in addition to the right nephrolithiasis. After we obtain the KUB, the latter was the case, and he was counseled accordingly for surgical intervention. -I diagrammed and explained the procedure in detail -cystoscopy with right retrograde pyelography and right ureteral stent placement. Risks of the procedure were discussed to include urethral stricture, infection, injury to the ureter, and failure to achieve desired result of stent placement. Side effects of stent discomfort and irritative LUTS were also discussed in detail. -Consent was obtained and he will be scheduled today to complete cystoscopy with right retrograde pyelography and right ureteral stent placement. Patient has been NPO. Allergies No Known Allergies Allergy (Verified 03/03/14 08:44) Home medications list reviewed: Yes Home Medications: Ezetimibe [Zetia] 10 mg PO DAILY 03/02/14 Valsartan [Diovan*] 160 mg PO BID 03/02/14 Aspirin 81 mg PO DAILY 01/01/17 Omeprazole 20 mg PO DAILY 01/01/17 Metoprolol Tartrate [Lopressor*] 50 mg PO BID #60 tab 01/03/17 Amlodipine [Norvasc] 10 mg PO DAILY 11/07/23 Empagliflozin [Jardiance] 10 mg PO DAILY 11/07/23 Rosuvastatin [Crestor*] 40 mg PO DAILY 11/07/23 Tamsulosin [Flomax*] 0.4 mg PO DAILY 11/07/23 hydroCHLOROthiazide [Hydrochlorothiazide] 25 mg PO DAILY 11/07/23 Amoxicillin 500 mg PO TID 11/08/23 - Past Medical/Surgical History Diabetic: Yes -: HTN -: SD -: quad bypass -: broken ankles -: neck surgery -: caarpal tunnel -: right hip surgery - Family History Mother Medical History: Heart disease Father Medical History: Cancer, Other (see notes) Notes: colon cancer - Social History Smoking Status: Current some day smoker Alcohol use: Yes CD- Drugs: No Caffeine use: Yes Place of Residence: Home Physical Examination Temp Pulse Resp BP Pulse Ox 97.4 F 56 16 126/61 93 11/08/23 12:00 11/08/23 12:00 11/08/23 12:00 11/08/23 12:00 11/08/23 12:00 Laboratory Data (last 24 hrs) 11/07/23 11/07/23 15:31 15:31 WBC 9.00 Hgb 18.0 H Hct 52.4 H Plt Count 168 Sodium 134 L Potassium 3.2 L BUN 15 Creatinine 0.95 Glucose 90 Total Bilirubin 0.9 AST 21 ALT 37 Alkaline Phosphatase 70 Lipase 19 - Problems (1) Right flank pain Current Visit: Yes Status: Acute (2) Ureterolithiasis Current Visit: Yes Status: Acute (3) Right nephrolithiasis Current Visit: Yes Status: Acute Conclusions/Impression: See assessment and plan in [facility] Critical Care: No Time Spent Managing Pts care (In Minutes): 60
[2023-11-08] MEDS: CEFAZOLIN SODIUM 2 GM/VIAL ONE (15:13)
[2023-11-08] MEDS ORDERED: dexAMETHasone 10 MG/ML VIAL ONE (15:13)
[2023-11-08] MEDS ORDERED: GLYCOPYRROLATE 0.2 MG/ML SYR ONE (15:19)
[2023-11-08] MEDS ORDERED: EPHEDRINE SULF 50 MG/ML VIAL ONE (15:20)
--- NOTE | 2023-11-08 16:12 | P.OP ---
Date of Service: 11/08/23 Preoperative diagnoses: Right ureterolithiasis- 7 mm Right flank pain intractable Bilateral nephrolithiasis Postoperative diagnoses: Meatal stenosis Bulbar urethral stricture disease, nonocclusive Right ureterolithiasis- 7 mm Right flank pain intractable Bilateral nephrolithiasis Principal procedures: Urethral dilation using sounds Cystoscopy Right retrograde pyelography Right 6 Gabonese by 26 cm double-J ureteral stent placement Indication for procedure: 68-year-old gentleman with hypertension, DM 2, hypercholesterolemia with in tractable right flank pain associated with right 7 x 6 mm ureterolithiasis in the setting of bilateral nephrolithiasis, imperceptible to KUB. Procedure note: The patient was consented on the inpatient unit before being transferred to the operative suite where general anesthesia was induced. He was given Ancef 2 g IV antimicrobial prophylaxis, and pneumoboots were provided for DVT prophylaxis. H e was placed in the lithotomy position, padded and secured to the table appropriately, and his genitalia was prepped with Hibiclens before being draped in standard fashion. The case was begun attempting to use a 22 Gabonese cystoscope, but meatal stenosis torted passage. Attempts to dilate the meatus using the obturator of the cystoscope also were unsuccessful; so I employed urethral sounds to dilate the meatus from 18 Gabonese to 26 Gabonese with relative ease. I was then able to pass the cystoscope via his urethra until I encountered an area of slight stenosis in the bulbar urethra where there was a degree of stricture disease in the bulbomembranous junction. I was able to manipulate the cystoscope to navigate beyond the stricture disease without developing a mucosal flap, and ultimately I navigated the scope via the prostatic urethra into his bladder. I decompressed his bladder of fluid and urine and refilled it with sterile saline. The ureteral orifices were orthotopic in location, and I cannulated the right ureteral orifice using the tip of a 5 Gabonese ureteral access catheter. Right retrograde pyelography: Using a 70: 30 mixture of Omnipaque and saline, contrast was injected via the lumen of the 5 Gabonese ureteral access catheter and did propagate up the distal ureter beyond a filling defect observed in the distal ureter consistent with a calculus, before propagating up the dilated ureter and ultimately into the renal pelvis where there was mild pelviectasis with minimal caliectasis. None of the stones were radiopaque. As a result, I advanced a sensor wire via the 5 Gabonese ureteral access catheter coiling it within the lower pole of the kidney. Over the sensor wire, I passed a 6 Gabonese by 26 cm double-J ureteral stent and performed a coil in the renal pelvis evidenced fluoroscopically with an additional coil formed cystoscopically in his bladder. I then decompressed his bladder of fluid and urine and took the patient out of the lithotomy position after removing the cystoscope. He was then awakened from general anesthesia, transferred to a stretcher, and then transferred to the recovery room in good condition. Complications: None Discharge disposition: Follow-up should be established in the urology clinic to discuss the need for definitive management of his stones on the right side, first, via ureteroscopy with pyeloscopy and laser lithotripsy. Since his stones are radiolucent, no management of the left side will be attempted unless he has a stone passage event on that side. Metabolic stone profile assessment will be performed after completion of management of the right-sided kidney stones and ureteral stone.
--- NOTE | 2023-11-08 16:42 | P.CNS ---
Date of Consult: 11/08/23 Chief Complaint: Right flank pain History of Present Illness: Patient with PMH of CAD S/P CABG 17 yrs ago, presented with right flank pain, found to have kidney stones, denies having any cardiac symptoms, no SP, no SOB, no palpitations, no syncope. Allergies No Known Allergies Allergy (Verified 03/03/14 08:44) Home Medications: Ezetimibe [Zetia] 10 mg PO DAILY 03/02/14 Valsartan [Diovan*] 160 mg PO BID 03/02/14 Aspirin 81 mg PO DAILY 01/01/17 Omeprazole 20 mg PO DAILY 01/01/17 Metoprolol Tartrate [Lopressor*] 50 mg PO BID #60 tab 01/03/17 Amlodipine [Norvasc*] 10 mg PO DAILY 11/07/23 Empagliflozin [Jardiance] 10 mg PO DAILY 11/07/23 Rosuvastatin [Crestor*] 40 mg PO DAILY 11/07/23 Tamsulosin [Flomax*] 0.4 mg PO DAILY 11/07/23 hydroCHLOROthiazide [Hydrochlorothiazide] 25 mg PO DAILY 11/07/23 Amoxicillin 500 mg PO TID 11/08/23 Codeine/APAP [Tylenol W/Codeine #3 tab] 1 tab PO Q6HP PRN #12 tab 11/08/23 - Past Medical/Surgical History Diabetic: Yes -: HTN -: NV -: quad bypass -: broken ankles -: neck surgery -: caarpal tunnel -: right hip surgery - Family History Mother Medical History: Heart disease Father Medical History: Cancer, Other (see notes) Notes: colon cancer - Social History Smoking Status: Current some day smoker Alcohol use: Yes CD- Drugs: No Caffeine use: Yes Place of Residence: Home Review of Systems 10-point ROS is otherwise unremarkable Physical Examination Temp Pulse Resp BP Pulse Ox 98.1 F 76 16 154/84 H 93 11/08/23 16:09 11/08/23 16:29 11/08/23 16:29 11/08/23 16:29 11/08/23 12:00 General: Alert, Oriented x3 HEENT: Atraumatic Neck: Supple Respiratory: Clear to auscultation bilaterally Cardiovascular: No edema, Normal S1 S2 Gastrointestinal: Normal bowel sounds - Problems (1) Encounter for pre-operative cardiovascular clearance Current Visit: Yes Status: Acute Plan: Patient with CAD and CABG, Most recent clinic records shows that he had a stress test in late 2021 that was normal. Patient is low to intermediate cardiac risk for surgery. (2) Hyperlipidemia Current Visit: No Status: Acute Plan: continue Crestor 10 mg daily (3) Hypertension Current Visit: No Status: Acute Plan: Continue Metoprolol 50 mg po BID Continue Valsartan.
[2023-11-08 17:36] VITALS: O2SAT 98
[2023-11-08 18:04] VITALS: BP 163/77; TEMP 97.4
--- NOTE | 2023-11-08 18:47 | RAD REPORT ---
EXAM DESCRIPTION: RAD - Urethrocystogrphy Retrograde - 11/08/2023 5:58 pm CLINICAL HISTORY: CYSTO COMPARISON: None available. FINDINGS: Six Images were sent to PACS, documenting fluoroscopy use during cystography and right ure teral stent procedure. No radiologist was available for the procedure, nor will any image interpretat ion he provided. Please refer to the procedural report for additional details. Fluoroscopy time: 0.1 Minutes. IMPRESSION: Documentation of fluoroscopy utilization as above.
--- NOTE | 2023-11-09 04:32 | DS ---
Date of Discharge: 11/08/2023 Disposition: Discharged to go home. Physical Examination: HEENT: Unremarkable. Lungs: Clear to auscultation. Heart: Sounds normal. Abdomen: Soft. Bowel sounds normal. No guarding, rigidity, tenderness, distention. Extremities: No leg edema. Laboratory Data: White count 9, hemoglobin 18, platelets 168, this was yesterday. Today, white coun t 6.8, hemoglobin 16.7, and platelets 158. For chemistry yesterday, sodium 134, potassium 3.2, chlor debra 101, bicarb 28, BUN 15, creatinine 0.95, glucose 90. Liver function tests unremarkable. Lipase 19. This morning, sodium 138, potassium 4, chloride 104, bicarb 34, BUN 15, creatinine 1.05, glucose 117. Hospital Course: This is a 68-year-old pleasant male patient, who was admitted to the hospital with abdominal pain. Please see dictated H and P for more information. After the patient was evaluated i n the emergency room yesterday, he was admitted to the hospital with bilateral kidney stone and 7 mm stone in the right distal ureter causing hydronephrosis. The patient was afebrile. White count was normal. Urinalysis did not show any sign of infection. Pain medication was given to him for relief of his pain. Urologist was consulted, Dr. Porras, and he took the patient to operating room today a nd after the surgery was done, medically he was stable for discharge, so Dr. Porras discharged him t o go home with outpatient followup. I have advised the patient to come see me next week for the foll owup and for him to follow up with Dr. Porras as per his instructions. Final Diagnoses: 1.Right ureteric stone, with hydronephrosis. 2.Bilateral kidney stones. 3.Coronary artery disease. 4.Hypertension. 5.Hyperlipidemia. 6.Type 2 diabetes mellitus. 7.Gastroesophageal reflux disease. Total time spent today 35 minutes. LIOR/MODL Voice ID: [id number] Report ID: [id number]
== END 2023-11-08 18:56 | disposition home or self-care (01) ==
LOC: ER 14:57 → 2ND 17:48
PROVIDERS: ADMIT Internal Medicine; ATTEND Internal Medicine
PROC: BT1DZZZ Fluoroscopy of Right Kidney, Ureter and Bladder (ICD-10-PCS; 2023-11-08)
PROC: 0T768DZ Dilation of Right Ureter with Intraluminal Device, Via Natural or Artificial Opening Endoscopic (ICD-10-PCS; principal; 2023-11-08 15:30)
DX: N20.2 Calculus of kidney with calculus of ureter (principal); N13.30 Unspecified hydronephrosis; N40.0 Benign prostatic hyperplasia without lower urinary tract symptoms; E11.9 Type 2 diabetes mellitus without complications; E78.5 Hyperlipidemia, unspecified; I25.10 Atherosclerotic heart disease of native coronary artery without angina pectoris; I10 Essential (primary) hypertension; K21.9 Gastro-esophageal reflux disease without esophagitis; M19.90 Unspecified osteoarthritis, unspecified site; N35.911 Unspecified urethral stricture, male, meatal; Z95.1 Presence of aortocoronary bypass graft; Z01.810 Encounter for preprocedural cardiovascular examination
CPT/HCPCS: 52332; 52005; 85025 ×2; 81001; 80048; 36415; 82947; 83690; 80053; 74177; 74018; 74450; 51610; 99285; J3475; J2704; J2001; J2250; J3010 ×2; J1100; J1170 ×3; J2405 ×2; G0378 ×4; J7042; J7030 ×3

== ENCOUNTER 2023-12-20 06:17 | Day surgery (SDC) | payer OTHER ==
[2023-12-06 16:08] LABS: Absolute Eosinophils 0.1 K/uL (0-0.5); Absolute Lymphocytes (CBC) 2.2 K/uL (0.7-4.9); Absolute Monocytes 0.7 K/uL (0.1-1.3); Absolute Neutrophil 6.3 K/uL (1.8-8.0); Basophils % 0.5 % (0-1.3); Eosinophils % 1.5 % (0-4.4); Hematocrit 53.2 % (39.6-49.0); Hemoglobin 17.5 g/dL (13.6-17.9); Lymphocytes % 23.5 % (15.3-44.8); MCH 32.4 pg (27.0-35.0); MCHC 32.9 g/dL (32.0-36.0); MCV 98.3 fL (80-100); MPV 9.2 fL (7.6-11.3); Monocytes % 7.5 % (3.3-12.3); Nucleated Red Blood Cells % 0.1 % (0-0); Platelets 173 thou/uL (152-406); RBC Red Blood Cell Count 5.41 M/uL (4.33-5.43); Red Cell Distribution Width 13.3 % (12.1-15.2)
[2023-12-06 16:09] LABS: PT Prothrombin Time 13.4 SECONDS (9.5-12.5); Protime INR 1.23
--- NOTE | 2023-12-06 16:30 | RAD REPORT ---
EXAM DESCRIPTION: Mikat Pa And Lat (2 Views)12/06/2023 3:09 pm CLINICAL HISTORY: Preop for genitourinary surgery. Hypertension COMPARISON: 2022 FINDINGS: 9 millimeter opacity overlies left upper lobe. The remainder the lungs appear clear Postsurgical changes involve the chest IMPRESSION: 9 millimeter opacity overlies left upper lobe. This may represent a pulmonary nodule. Un enhanced CT chest is recommended
--- NOTE | 2023-12-07 16:34 | EKG ---
Test Date: 2023-12-06 Test Time: 14:51:01 Material Expediter: JASON MEASUREMENT RESULTS: Intervals: Rate: 55 VA: 192 QRSD: 112 QT: 436 QTc: 417 [place]: P: 75 VA: 192 QRS: 71 T: 72 INTERPRETIVE STATEMENTS: Sinus bradycardia Otherwise normal ECG Compared to ECG 02/17/2023 14:58:22 No significant changes Electronically Signed On 12-07-23 16:32:36 CDT by Gunnar Hodge
[2023-12-20] MEDS ORDERED: NA CHLORIDE 0.9% 1,000 ML ONE (06:43)
[2023-12-20] MEDS ORDERED: ROCURONIUM 50 MG/5 ML VIAL IV ONE (07:11)
[2023-12-20] MEDS ORDERED: propofoL 200 MG/20 ML VIAL IV ONE (07:11)
[2023-12-20] MEDS ORDERED: LIDOCAINE 1% MPF 5 ML VIAL ONE (07:11)
[2023-12-20] MEDS ORDERED: FENTANYL CITR 100 MCG/2 ML ONE (07:11)
[2023-12-20] MEDS: CEFAZOLIN SODIUM 2 GM/VIAL ONE (07:45)
[2023-12-20] MEDS ORDERED: EPHEDRINE SULF 50 MG/ML VIAL ONE (07:54)
[2023-12-20] MEDS ORDERED: NEOSTIGMINE 1 MG/ML -10 ML VIAL ONE (08:06)
[2023-12-20] MEDS ORDERED: Mastisol Adhesive Liq ONE (08:06)
[2023-12-20] MEDS ORDERED: GLYCOPYRROLATE 0.2 MG/ML SYR ONE ×2 (08:07)
[2023-12-20] MEDS ORDERED: ONDANSETRON 4 MG/2 ML VIAL ONE (08:10)
[2023-12-20] MEDS ORDERED: PHENAZOPYRIDINE 100MG TAB PO ONE (08:50)
[2023-12-20] MEDS ORDERED: HYDROCODONE/APAP 5/325 MG TAB PO PRN (08:50)
[2023-12-20 10:50] VITALS: BP 126/61; TEMP 97.3; O2SAT 97
--- NOTE | 2023-12-20 12:25 | RAD REPORT ---
EXAM DESCRIPTION: RAD - Urethrocystogrphy Retrograde - 12/20/2023 8:41 am CLINICAL HISTORY: RT STENT COMPARISON: None available. FINDINGS: Eight Images were sent to PACS, documenting fluoroscopy use during image guided right uret eral stenting procedure. No radiologist was available for the procedure, nor will any image interpret ation he provided. Please refer to the procedural report for additional details. Fluoroscopy time: 0.06 Minutes. IMPRESSION: Documentation of fluoroscopy utilization as above.
--- NOTE | 2023-12-20 19:08 | OP ---
Surgeon: KYLAH LESTER Preoperative Diagnoses: 1.Right ureterolithiasis. 2.Bilateral nephrolithiasis. 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 2.Passed right ureteral calculus. 3.Meatal stenosis. Principal Procedures: 1.Cystoscopy. 2.Right retrograde pyelography. 3.Right ureteroscopy with pyeloscopy. 4.Right ureteral stent exchange. 5.Meatal dilation using sounds. Indication For Procedure: Mr. Addison presented via the Urology Clinic with pain associated with an obstructing distal ureteral calculus. He underwent a right ureteral stent placement and presents toroxana de la o for definitive management of that stone. Procedure In Detail: The patient was consented in the preoperative holding area before being transfe rred to the operative suite where general anesthesia was induced. He was given Ancef 2 g IV antimicr obial prophylaxis, and pneumo boots were provided for DVT prophylaxis. He was placed in the lithotom y position, padded and secured to the table appropriately, and his genitalia were prepped with Hibicl ens before being draped in standard fashion. The case was begun by attempting to pass the 22-Bahraini rigid cystoscope via his urethra, but meatal stenosis did prevent initial entry into the urethra. As a result, I utilized urethral sounds to dilate the meatus and fossa navicularis to 26-Bahraini. After wards, I was able to pass the cystoscope via the urethra and into the bladder with relative ease. Th e previously noted BPH with [id number] intravesical projection was again noted. The ureteral o rifices were orthotopic in location and the right ureteral orifice had the stent emanating from it. I thus grasped the coil of the stent using a flexible alligator grasper and delivered the stent to th e tip of the penis, leaving the proximal coil within the mid ureter. I then passed a Sensor wire via the stent coiling it putatively within the collecting system and removed the stent leaving the wire in place. I then performed a direct vision semi-rigid ureteroscopy via the urethra into his bladder and into the right ureter. I was able to navigate the semi-rigid ureteroscope all the way up the dis lia into the mid and proximal ureter until the inside of the right renal pelvis was observed. With n o stone observed along the course of the ureter, the assumption will have to be that the stone may lópez ve been displaced into the kidney. As a result, I placed a Bentson guidewire via the ureteroscope co iling it alongside the Sensor wire in the collecting system. I then removed the ureteroscope leaving the wire in place and passed a flexible ureteroscope over the wire all the way into the collecting s ystem. I then surveyed each of the calices looking for this stone or the additional 3 stones seen on the CT scan. Only Robert's plaques were noted in the lower pole calices in the region where stones were suspected on CT up to 4 mm in diameter. As a result, I injected contrast via the lumen of the ureteroscope and delineated each of the calices and then ensured each of them was seen by angling the scope into each of the calices evidenced fluoroscopically. Again, no stones were found within any o f the calices of the renal pelvis; so, I surveyed down through the proximal into the mid and distal u reter on the way out, again looking for the stone and no stones were noted. As a result, I backloade d the cystoscope over the indwelling Sensor safety wire and I passed a 6-Bahraini x 26 cm double-J uret eral stent into the collecting system with a coil observed fluoroscopically in the kidney and 1 cysto scopically formed in the bladder. I then surveyed the bladder for the previously observed ureteral c alculus, and no stone was observed in the bladder, either. As a result, I decompressed the bladder o f fluid and urine and removed the cystoscope. I then taped the tether of the stent to the glans peni s using Steri-Strips and Mastisol. The patient was then taken out of the lithotomy position, awakene d from general anesthesia, transferred to a stretcher, and then transferred to the recovery room in g ood condition. Complications: None. Discharge Disposition: As a recurrent stone former, he will require metabolic stone profile assessme nt via Litholink x2, which should occur about a month from now. Subsequent followup should then be e stablished, but the patient has also expressed previously an interest in proceeding with the UroLift to manage his obstruction due to BPH. If he wishes to proceed with surgical therapy via the UroLift, this may be accomplished after the Litholink has been completed. Subsequent followup for both the U roLift and of the Litholink may then take place at the same time. The patient also has a tethered ureteral stent and will be given a prescription for Bactrim for antim icrobial prophylaxis taken once a day while the stent is in place. The stent may be removed on or Tuesday at the patient's discretion. TIERA/TAMRA Voice ID: [id number] Report ID: [id number]
== END 2023-12-20 09:50 | disposition home or self-care (01) ==
LOC: OR 06:17
PROVIDERS: ATTEND Urology
PROC: 0T768DZ Dilation of Right Ureter with Intraluminal Device, Via Natural or Artificial Opening Endoscopic (ICD-10-PCS; principal; 2023-12-20 07:30)
DX: N20.2 Calculus of kidney with calculus of ureter (principal); N35.911 Unspecified urethral stricture, male, meatal
CPT/HCPCS: 52332; 93005; 87088; 85025; 87086; 80048; 36415; 85610; 82947; 71046; 74450; 51610; J2704; J2710; J2001; J3010; J2405; J7030